=== PATIENT | male | born 1945 | race Caucasian/White ===

== ENCOUNTER 2017-02-09 09:08 | Outpatient (CLI) | payer MEDICARE ==
[~2017-02-09] VITALS: Ht 177.8 cm; Wt 90.9 kg
--- NOTE | ~2017-02-09 | HEMODYNAMI ---
PATIENT:ANA LILIA FLORES MEDICAL RECORD: [id number] : 41 LOCATION:D.CAT ADMISSION DATE: 02/09/17 Generatedon:02/09/201713:53 Patient name: ANA LILIA FLORES Patient #: [id number] SSN: DO B: 1945 Date of study: 02/09/2017 Page: Of Hemodynamic Procedure Report Patient Data Patient Demographics Procedure consent was obtained First Name: ANA LILIA Gender: Male Last Name: SANDRA : 1945 Middle Initial: RAY Age: 72 year(s) Patient #: [id number] Race: Unknown Additional ID: [id number] Contact details [address]: [address] [place] [address] DRIVE State: [place] City: [place] Zip code: [address] Admission Admission Data Admission Date: 02/09/2017 Admission Time: 9:08 Lab Results Lab Result Date: 02/09/2017 Lab Result Time: 0:00 Biochemistry Name Units Result Min Max BUN mg/dl 15 --(--*-)-- 7 18 Creatinine mg/dl 0.9 --(-*--)-- 0.6 1.3 CBC Name Units Result Min Max Hemoglobin g/dl 14.4 --(*---)-- 13.5 17.5 Procedure Procedure Types Cath Procedure Miscellaneous Procedures Moderate Sedation up to 30 minutes Peripheral Cath Diagnostic Procedure Cath Peripheral Ancvm-Eefcalf-Wvv-Off Procedure Description Procedure Date Procedure Date: 02/09/2017 Procedure Start Time: 13:26 Procedure End Time: 13:53 Procedure Staff Name Function Domenic Oakley MD Performing Physician Alan Murray RN Nurse Kyle Russell RT Monitor Katelin Antoine RT Scrub Procedure Data Cath Procedure Fluoroscopy Diagnostic fluoroscopy Total fluoroscopy Time: 6.6 time: 6.6 min min Diagnostic fluoroscopy Total fluoroscopy dose: 536 dose: 536 mGy mGy Contrast Material Contrast Material Type Amount (ml) Isovue 300 106 Entry Location Entry Primary Successful Side Size Upsize Upsize Entry Closure Succes sful Closure Location (Fr) 1 (Fr) 2 (Fr) Remarks Device Remarks Femoral Right 5 Fr 6 Fr 6 Fr Exoseal artery Long Short Estimated blood loss: 10 ml Diagnostic catheters Device Type Used For End Catheter Placement Cordis Tempo 5Fr UF Procedure catheter Diagnostic 5Fr IMT Procedure Catheter Diagnostic Infinity 5Fr Procedure MPA-2 catheter Procedure Complications No complications Procedure Medications Medication Administration Route Dosage Oxygen NC 2 l/min Lidocaine 2% added to field 20 Heparin Flush Bag added to field 2 bags (1000units/500ml NS) 0.9% NaCl I.V. 100 ml/hr Versed I.V. 1 mg Fentanyl I.V. 50 mcg Versed I.V. 1 mg Fentanyl I.V. 50 mcg Fentanyl I.V. 50 mcg Heparin Bolus I.V. 4000 units Hemodynamics Rest HGB: 14.4 (g/dl) Heart Rate: 58 (bpm) Snapshots Pre Cath Intra NCS Post Cath Vital Signs Time Heart Resp SPO2 etCO2 UL4httw NIBP (mmHg) Rhythm Pain Sedation Rate (ipm) (%) (mmHg) (mmHg) Status Level (bpm) 13:15:43 58 19 99 0 0 134/71(103) NSR 0 (11) 10(A) , No pain 13:19:59 61 18 97 0 0 152/67(89) NSR 0 (11) 10(A) , No pain 13:24:17 62 19 96 0 0 127/83(101) NSR 0 (11) 10(A) , No pain 13:28:29 63 19 96 0 0 137/72(114) NSR 0 (11) 10(A) , No pain 13:32:45 64 18 96 0 0 133/77(109) NSR 0 (11) 9(A) , No pain 13:37:01 65 17 95 0 0 125/71(96) NSR 0 (11) 9(A) , No pain 13:41:09 69 15 94 0 0 128/84(118) NSR 0 (11) 9(A) , No pain 13:45:21 72 16 94 0 0 116/77(112) NSR 0 (11) 10(A) , No pain 13:49:27 69 8 95 0 0 132/79(110) NSR 0 (11) 10(A) , No pain Medications Time Medication Route Dose Verified Delivered Reason Notes Effectiveness by by 13:15:54 Oxygen NC 2 Domenic Buffie used for l/min Cele Murray RN procedure 13:16:02 Lidocaine 2% added 20ml Domenic Domenic for local to vial Cele Oakley MD anesthetic field 13:16:10 Heparin Flush added 2 Domenic Domenic used for Bag to bags Cele Oakley MD procedure (1000units/500ml field NS) 13:16:19 0.9% NaCl I.V. 100 Domenic Buffie Per physician ml/hr Cele Murray RN 13:25:34 Versed I.V. 1 mg Domenic Buffie for sedation Cele Murray RN 13:25:40 Fentanyl I.V. 50 Domenic Buffie for sedation mcg Cele Murray RN 13:28:08 Versed I.V. 1 mg Domenic Buffie for sedation Cele Murray RN 13:28:12 Fentanyl I.V. 50 Domenic Buffie for sedation mcg Cele Murray RN 13:31:07 Fentanyl I.V. 50 Domenic Buffie for sedation mcg Cele Murray RN 13:37:51 Heparin Bolus I.V. 4000 Domenic Buffie for verifi ed units Cele Murray RN anticoagulation with dr oakley Procedure Log Time Note 12:51:15 Kyle Russell RT(R) sent for patient. Start room use. 12:51:15 Time tracking: Regular hours 12:51:20 Plan of Care:Hemodynamics will remain stable., Cardiac rhythm will remain stable., Comfort level will be maintained., Respiratory function will remain adequate., Patient/ family verbilizes understanding of procedure., Procedure tolerated without complication., Recovers from procedure without complications.. 13:04:16 Patient received from Pre/Post Procedure Room to CCL 1 Alert and oriented. Tansferred to table in Supine position. 13:04:18 Warm blankets applied, and sharifa hugger turned on for patient comfort. 13:04:18 Correct patient and procedure confirmed by team. 13:04:20 Signed procedure consent form obtained from patient. 13:04:22 ECG and BP/O2 sat monitors applied to patient. 13:14:36 Vital chart was started 13:14:40 Baseline sample Acquired. 13:14:45 Rhythm: sinus bradycardia 13:14:46 Full Disclosure recording started 13:15:00 H&P Date Dictated: 02/08/2017 Within 30 days and on chart., H&P Addendum completed by physician on day of procedure. (MUST COMPLETE FOR ALL OUTPATIENTS). 13:15:00 Pre-procedure instructions explained to patient. 13:15:01 Pre-op teaching completed and patient verbalized understanding. 13:15:03 Family in waiting room. 13:15:04 Patient NPO since Midnight. 13:15:07 Is the patient allergic to Iodine/contrast media? No. 13:15:08 Is patient on blood thinner?Yes 13:15:10 ACC The patient was administered the following blood thiners within the last 24 hours: ACCPlavix 13:15:11 Patient diabetic? No. 13:15:14 Previous problem with sedation/anesthesia? No ? 13:15:16 Snore? No 13:15:17 Sleep apnea? No 13:15:18 Deviated septum? No 13:15:18 Opens mouth fully? Yes 13:15:19 Sticks out tongue? Yes 13:15:21 Airway obstruction? No ? 13:15:23 Dentures? Yes IN 13:15:29 Pre procedure: right dorsailis pedis pulse 1+ Palpable, but thready & weak; easily obliterated 13:15:33 Pre procedure: left dorsailis pedis pulse Doppler 13:15:34 Patient pain scale 0/10 ?. 13:15:40 IV patent on arrival in left forearm with 0.9% NaCl at KVO. 13:15:43 Lab results completed and on chart. 13:15:54 Oxygen 2 l/min NC was administered by Aaln Murray RN; used for procedure; 13:16:01 Lab Result : Creatinine 0.9 mg/dl 13:16:01 Lab Result : BUN 15 mg/dl 13:16:01 Lab Result : Hemoglobin 14.4 g/dl 13:16:02 Lidocaine 2% 20ml vial added to field was administered by Domenic Oakley MD; for local anesthetic; 13:16:08 Bilateral groins area was prepped with chlora-prep and draped in sterile fashion 13:16:09 Alarms reviewed by R. N. 13:16:10 Heparin Flush Bag (1000units/500ml NS) 2 bags added to field was administered by Domenic Oakley MD; used for procedure; 13:16:10 Sharps counted by scrub and verified by R.N. 13:16:19 0.9% NaCl 100 ml/hr I.V. was administered by Alan Murray RN; Per physician; 13:19:55 Use device set Femoral Dx 13:19:56 Tegaderm 4 x 4 opened to sterile field. 13:19:58 Acist Hand Control opened to sterile field. 13:19:58 Acist Manifold opened to sterile field. 13:20:02 Acist Syringe opened to sterile field. 13:20:02 Bag Decanter opened to sterile field. 13:20:03 Medline Cath Pack opened to sterile field. 13:20:03 Terumo 5Fr Kingston Sheath opened to sterile field. 13:20:04 St Malcom 260cm J .035 wire opened to sterile field. 13::57 --------ALL STOP TIME OUT------ 13:23:58 Final Timeout: patient, procedure, and site verified with staff and physician. All members of the team are in agreement. 13:24:00 Bilateral groins site verified by team. 13:24:03 Physical assessment completed. ASA score P 2 - A patient with mild systemic disease as per Domenic Oakley MD. 13:24:07 Sedation plan: IV Moderate Sedation Versed, Fentanyl 13:25:34 Versed 1 mg I.V. was administered by Alan Murray RN; for sedation; 13:25:40 Fentanyl 50 mcg I.V. was administered by Alan Murray RN; for sedation; 13:26:42 Procedure started. 13:26:53 Local anesthetic to right femoral artery with Lidocaine 2% by Domenic Oakley MD.INITIAL ACCESS ONLY 13:27:44 A 5 Fr sheath was inserted into the Right Femoral artery 13:27:51 A Glow Digital Media 5Fr UF catheter was advanced over the wire and used for Procedure. 13:28:08 Versed 1 mg I.V. was administered by Alan Murray RN; for sedation; 13:28:12 Fentanyl 50 mcg I.V. was administered by Alan Murray RN; for sedation; 13:28:37 Abdominal Aortagram was performed. 13:28:47 Right leg runoff performed. 13:29:13 Left leg runoff performed. 13:30:02 Catheter removed. 13:30:06 A Diagnostic 5Fr IMT Catheter was advanced over the wire and used for Procedure. 13:30:10 Terumo ADVANTAGE 260CM glide wire opened to sterile field. 13:30:20 Glidewire advanced. 13:31:07 Fentanyl 50 mcg I.V. was administered by Alan Murray RN; for sedation; 13:32:09 Catheter advanced around the horn for better imaging of the left leg. 13:32:12 Left leg runoff performed. 13:33:30 Glidewire readvanced. 13:33:37 Catheter removed. 13:33:46 Terumo 6Fr Kingston Destination Sheath opened to sterile field. 13:33:56 [place] Sci Choice PT Extra Support J 300cm .014 gu opened to sterile field. 13:34:03 Merit BasixCompak Inflation Kit opened to sterile field. 13:34:16 Sheath upsized to a 6 Fr Long. 13:35:45 A Diagnostic Infinity 5Fr MPA-2 catheter was advanced over the wire and used for Procedure. 13:36:20 MPA catheter used advance sheath around the horn. 13:36:32 Catheter removed. 13:37:37 Terumo 5FR STRAIGHT 100CM glide catheter opened to sterile field. 13:37:51 Heparin Bolus 4000 units I.V. was administered by Alan Murray RN; for anticoagulation; verified with dr oakley 13:37:53 Glidecatheter advanced. 13:38:41 Glidewire removed. Choice PT XS advanced. 13:41:49 Choice PT XS removed. Glidewire readvanced. 13:41:59 Terumo TORQUE DEVICE PLASTIC .038 opened to sterile field. 13:42:47 Terumo 6Fr Kingston Sheath opened to sterile field. 13:43:45 Wire removed. Glidecatheter removed. 13:44:09 Unable to cross lesion is Left Mid SFA. 13:44:40 Cordis 6Fr Exoseal opened to sterile field. 13:44:55 Sheath upsized to a 6 Fr Short. 13:44:55 Sheath removed intact; hemostasis achieved with Exoseal to the Right Femoral artery. 13:44:58 Procedure ended.(Physican Out) 13:45:17 Fluoroscopy time 06.60 minutes. 13:46:04 Fluoroscopy dose: 536 mGy 13:46:04 Flurop Dose total: 536 13:46:08 Contrast amount:Isovue 300 106ml. 13:46:10 Sharps counted by scrub and verified by R.N. 13:48:58 Insertion/operative site no bleeding no hematoma. 13:49:02 Post-op/insertion site Right Femoral artery dressed using a 4 x 4 and Tegaderm. 13:49:05 Post Procedure Pulses reassessed and unchanged 13:49:07 Post-procedure physical assessment completed. ASA score P 2 - A patient with mild systemic disease as per Domenic Oakley MD. 13:49:10 Post procedure rhythm: unchanged. 13:49:13 Estimated blood loss: 10 ml 13:49:15 Post procedure instruction explained to patient.Patient verbalizes understanding. 13:49:16 Patient needs reinforcement of post procedure teaching. 13:49:22 Procedure type changed to Cath procedure, Miscellaneous Procedures, Moderate Sedation up to 30 minutes, Peripheral Cath Diagnostic Procedure, Cath Peripheral, Rtbxj-Qglhnzt-Pre-Off 13:49:24 Procedure and supply charges have been captured, reviewed, submitted and are correct. 13:49:26 Procedure Complication : No complications 13:52:54 Vital chart was stopped 13:52:55 See physician's report for complete and final results. 13:53:08 Report given to Pre/Post Procedure Room. 13:53:11 Patient transfered to Pre/Post Procedure Room with Bed. 13:53:13 Procedure ended. 13:53:13 Full Disclosure recording stopped 13:53:16 End room use (Document Last) Device Usage Item Name Manufacture Quantity Catalog Number [facility] Part Current [facility] Lot# / Charge Number Stock Stock Serial# Code Tegaderm 4 3M 1 [id number] 665598 [id number] 5 x 4 Acist Hand Acist 1 36265 881783 460689 218348 5 Control Medical Systems Inc Acist Acist 1 07449 033368 376713 381653 5 Manifold Medical Systems Inc Acist Acist 1 73933 515786 599968 551606 20 Syringe Medical Systems Inc Bag Microtek 1 2001S 129325 69976 313549 5 Decanter Medical Inc. Medline Cardinal 1 [id number] 083692 77847 132581 5 Cath Pack Health Terumo 5Fr Terumo 1 IBT931 071750 916755 707556 [address] St Malcom 1 344032 272329 041662 158187 30 260cm J .035 wire Cordis Cardinal 1 [id number] 639233 756548 906891 10 Tempo 5Fr Health UF catheter Diagnostic [place] 1 [id number] 860347 404594 61531 5 5Fr IMT Scientific Catheter Terumo Terumo 1 SM7225 327766 623599 5 ADVANTAGE 260CM glide wire Terumo 6Fr Terumo 1 RSR01 461366 23938 080795 5 Kingston Destination Sheath Northfield Sci Northfield 1 [id number] 488528 634453 465107 5 Choice PT Scientific Extra Support J 300cm .014 gu Merit Merit 1 JW0004 745388 439385 183279 15 BasixComazk Medical Inflation Kit Diagnostic Cardinal 1 [id number] 247728 657587 940245 5 Infinity Health 5Fr MPA-2 catheter Terumo 5FR Terumo 1 CG506 879221 60384 484639 4 STRAIGHT 100CM glide catheter Terumo [place] 1 TD01 927442 174331 248245 5 TORQUE Scientific DEVICE PLASTIC .038 Terumo 6Fr Terumo 1 HUT105 834010 970732 358447 40 Kingston Sheath Cordis 6Fr Cardinal 1 EX600 266590 920133 846760 10 [facility] [email or web address] Signature Audit [place] Stage Time Signature Unsigned Intra-Procedure 02/09/2017 Kyle Russell 1:53:35 PM RT(R) Signatures Monitor : Kyle Russell RT Signature : Date : Time : [facility] [address] [place] [address]
[2017-02-09] MEDS ORDERED: LYRICA150 MG PO (10:39)
[2017-02-09] MEDS ORDERED: TEMAZEPAM30 MG PO (10:39)
[2017-02-09] MEDS ORDERED: LIPITOR40 MG PO (10:40)
[2017-02-09] MEDS ORDERED: MOBIC7.5 MG PO (10:40)
[2017-02-09] MEDS ORDERED: FLINTSTONE1 TAB.CHEW PO (10:41)
[2017-02-09] MEDS ORDERED: CEREFOLIN TAB1 TAB PO (10:41)
[2017-02-09] MEDS ORDERED: ESTER-C 500 MG1 TAB PO (10:42)
[2017-02-09] MEDS ORDERED: OMEGA 3 FISH OI1 CAP PO (10:42)
[2017-02-09] MEDS ORDERED: BAYER CHEWABLE81 MG PO (10:42)
[2017-02-09 10:51] VITALS: BP 151/72; Ht 177.8 cm; Wt 90.9 kg
[2017-02-09 11:00] LABS: BASOPHILS 0.5 % (0-2); EOSINOPHILS 4.5 % (0-7); HEMATOCRIT 43.1 % (42.0-54.0); HEMOGLOBIN 14.4 g/dL (13.5-17.5); IMMATURE GRANULOCYTES 0.3 % (0-5); LYMPHOCYTES 36.7 % (15-50); MCH 31.7 pg (26.0-34.0); MCHC 33.4 g/dL (31.0-37.0); MCV 94.9 fL (80.0-100.0); MEAN PLATELET VOLUME 10.9 fL (7.4-10.4); MONOCYTES 7.9 % (2-11); NEUTROPHILS 50.1 % (40-80); PLATELET COUNT 229 10x3/uL (130-400); RBC 4.54 10x6/uL (4.20-6.10); RDW 12.9 % (11.5-14.5); WBC 6.3 10x3/uL (4.8-10.8)
[2017-02-09 11:13] LABS: CALC OSMOLALITY 283 mosm/kg (275-300); CALCIUM 9.1 mg/dL (8.5-10.1); CARBON DIOXIDE 27.3 mmol/L (21.0-32.0); CHLORIDE - SERUM 107 mmol/L (98-107); CREATININE - SERUM 0.9 mg/dL (0.6-1.3); GLUCOSE 92 mg/dL (74-106); POTASSIUM - SERUM 4.4 mmol/L (3.5-5.1); SODIUM 142 mmol/L (136-145); UREA NITROGEN 15 mg/dL (7-18); eGFR NON AFRICAN AMERICAN 88 mL/min (90-120)
--- NOTE | 2017-02-09 14:15 | NUR ---
RIGHT GROIN CDI, NO HEMATOMA OR BLEEDING AT SITE, SOFT TO TOUCH, AT SIDE
--- NOTE | 2017-02-09 14:45 | NUR ---
RESTING WITH AT SIDE, RIGHT GROIN CDI, NO HEMATOMA OR BLEEDING AT SITE
--- NOTE | 2017-02-09 17:50 | NUR ---
WRITTEN AND VERBAL INSTRUCTIONS GIVEN TO PT AND , DENIES FURTHUR NEEDS, D'C HOME WITH
--- NOTE | 2017-02-14 13:54 | OP ---
PATIENT NAME: ANA LILIA FLORES MEDICAL RECORD: [id number] :41 LOCATION:D.CAT ADMISSION DATE: SURGEON: MIS ROBERSON MD OPERATION DATE: 02/09/17 DATE OF OPERATION: 02/09/2017 PROCEDURES: 1. Aortofemoral runoff. 2. Abdominal aortography. INDICATION: Claudication and peripheral vascular disease. PROCEDURE IN DETAIL: After informed consent was obtained and after detailed explanation of risks, benefits as well as alternative therapies, the patient elected to proceed with angiogram and aortofemoral runoff. The right femoral area was prepped and draped in normal sterile fashion. The right femoral artery was cannulated via modified Seldinger technique with placement of 6-Paraguayan sheath. All catheters exchanged through this sheath. FINDINGS: The abdominal aortography was performed. The catheter was pulled down for aortofemoral runoff. Abdominal aortography reveals no significant abdominal aortic disease. No dissection or aneurysm formation. RIGHT LEG: A. Iliac: The common internal and external iliacs have moderate irregularities, but no flow-limiting stenosis. B. Femoral system: The common and deep femoral are widely patent. Superficial femoral has an area heavily calcified stenosis in the distal vessel at least 80%. C. Popliteal and infrapopliteal vessels: The popliteal is widely patent. There is preserved 3-vessel runoff to the foot. LEFT LEG: A. Iliac: The common internal and external iliacs are heavily calcified, tortuous, but no flow-limiting stenosis. B. Femoral system: The common and deep femoral are widely patent. The superficial femoral has a total occlusion in the mid portion vessel that is heavily calcified. C. Distal SFA is widely patent. Popliteal and infrapopliteal vessels are as well widely patent with preserved 3-vessel runoff to the foot. Attempted PARK AIDE stent of the left SFA. We could not cross the area of total occlusion with any glide cath glidewire or coronary wire. OVERALL IMPRESSION: Total occlusion of the left SFA, evaluate for femoropopliteal bypass surgery, right SFA is amenable to transcatheter revascularization in the future. TRANSINT:[id number] Voice Confirmation ID: [id number] DOCUMENT ID: [id number] OPERATIVE REPORT [id number] ANA LILIA FLORES MIS ROBERSON MD at 3864 CC: [id number] DICTATION DATE: 02/09/17 1351 EXECUTIVE RELATIONS SPECIALIST: 02/09/172045 DEP CLI 02/09/17 [facility] [address] [place] [address]
== END 2017-02-09 18:00 | disposition home or self-care (01) ==
LOC: D.CATH 09:08
PROVIDERS: Internal Medicine Interventional Cardiology
DX: I70.219 Atherosclerosis of native arteries of extremities with intermittent claudication, unspecified extremity (principal); E78.5 Hyperlipidemia, unspecified; I25.10 Atherosclerotic heart disease of native coronary artery without angina pectoris; Z01.812 Encounter for preprocedural laboratory examination

== ENCOUNTER → 2017-02-23 15:05 | Outpatient (CLI) | payer MEDICARE ==
[2017-02-09 10:51] VITALS: BMI 28.7
[~2017-02-23 15:05] MED LIST: BAYER CHEWABLE81 MG PO; CEREFOLIN TAB1 TAB PO; ESTER-C 500 MG1 TAB PO; FLINTSTONE1 TAB.CHEW PO; LIPITOR40 MG PO; LYRICA150 MG PO; MOBIC7.5 MG PO; OMEGA 3 FISH OI1 CAP PO; TEMAZEPAM30 MG PO
== END | disposition home or self-care (01) ==
LOC: D.US 15:05
DX: R09.89 Other specified symptoms and signs involving the circulatory and respiratory systems (principal)

== ENCOUNTER → 2017-02-26 10:12 | Outpatient (CLI) | payer MEDICARE ==
[2017-02-09 10:51] VITALS: BMI 28.7
[~2017-02-26 10:12] MED LIST changes: +ASCORBIC ACID500 MG PO; +GARLIC PO; -LYRICA150 MG PO; +LYRICA300 MG PO; +MULTI-DAY VITAM1 TAB PO; +PLAVIX75 MG PO; +VITAMIN B-122500 MCG PO
== END | disposition home or self-care (01) ==
LOC: D.CT 10:12
DX: I65.23 Occlusion and stenosis of bilateral carotid arteries (principal)

== ENCOUNTER 2017-02-28 05:09 | Inpatient (IN) | payer MEDICARE ==
[2017-02-27 16:23] LABS: HEMATOCRIT 42.6 % (42.0-54.0); HEMOGLOBIN 14.3 g/dL (13.5-17.5); MCH 31.7 pg (26.0-34.0); MCHC 33.6 g/dL (31.0-37.0); MCV 94.5 fL (80.0-100.0); MEAN PLATELET VOLUME 10.8 fL (7.4-10.4); RBC 4.51 10x6/uL (4.20-6.10); RDW 12.9 % (11.5-14.5)
[2017-02-27 16:31] LABS: APTT 25.4 SECONDS (22.8-39.4); INR 0.9 (0.85-1.17)
[2017-02-27 16:35] LABS: ALBUMIN 3.5 g/dL (3.4-5.0); ALKALINE PHOSPHATASE 182 U/L (46-116); ALT (SGPT) 29 U/L (10-68); APPEARANCE CLEAR (CLEAR); BILIRUBIN NEGATIVE (NEGATIVE); BILIRUBIN - TOTAL 0.59 mg/dL (0.2-1.3); CALC OSMOLALITY 277 mosm/kg (275-300); CALCIUM 8.7 mg/dL (8.5-10.1); CARBON DIOXIDE 31.3 mmol/L (21.0-32.0); CHLORIDE - SERUM 104 mmol/L (98-107); COLOR YELLOW (YELLOW); GLUCOSE 89 mg/dL (74-106); GLUCOSE NEGATIVE (NEGATIVE); KETONE NEGATIVE (NEGATIVE); LEUKOCYTE ESTERASE NEGATIVE (NEGATIVE); NITRITE NEGATIVE (NEGATIVE); POTASSIUM - SERUM 4.5 mmol/L (3.5-5.1); PROTEIN NEGATIVE (NEGATIVE); PROTEIN - SERUM 7.1 g/dL (6.4-8.2); SODIUM 140 mmol/L (136-145); SPECIFIC GRAVITY 1.025 (1.005-1.020); UREA NITROGEN 12 mg/dL (7-18); UROBILINOGEN NORMAL (NORMAL); eGFR NON AFRICAN AMERICAN 78 mL/min (90-120)
[2017-02-28] VITALS (37 sets, daily range): BP systolic 98–140; BP diastolic 47–76; BMI 30.9; BMI 31.6
[~2017-02-28] VITALS: Ht 177.8 cm; Wt 101.2 kg
--- NOTE | ~2017-02-28 | HP ---
PATIENT: ANA LILIA FLORES MEDICAL RECORD: [id number] ACCOUNT: [id number] LOCATION:[facility] : 43 ADMISSION DATE: 02/28/17 HISTORY AND PHYSICAL EXAMINATION ANA LILIA Nicholas (72yo, M) ID# [id number]. Date/Time02/27/2017 01:[id number] Dept.NPP_[facility] ClinicProviderEDKURT MOCK MDInsuranceMed Primary: [place] ([place]) Insurance # : [id number] Referring Provider Name : JA MIGUEL Employer Name : UNKNOWN Med Secondary: AARP (MEDICARE SUPPLEMENT) Insurance # : [id number] Employer Name : UNKNOWN Prescription: ORX - Member is eligible. Chief Complaint Carotid stenosis Patient's Care Team Referring Provider (): MYRIAM, JA: [address], [address], [place] [address], , Laser Cutter: MIS ROBERSON MD: [address] [place] [phone], , Patient's Pharmacies [facility] ([facility]): [address] [place] [phone], , Vitals BP:100/60 sitting L arm 02/27/2017 01:04 pmHR:88R/R 02/27/2017 01:04 pmHt:5 ft 10 in 02/27/2017 12:59 pmWt:210 lbs 02/27/2017 01:00 pmBMI:30.1 02/27/2017 01:00 pmAllergies Reviewed Allergies NKDAMedications Reviewed Medications aspirin 81mg daily02/12/17 enteredCindy Brownatorvastatin 40 mg zfgfye45/01/17 filledPRESCRIPTION SOLUTIONSFish Oil02/12/17 enteredCindy Ivoiulurwyh63/24/17 enteredCindy Brownlidocaine 5 % topical agwkeknu35/31/16 filledPRESCRIPTION SOLUTIONSLyrica 150 mg capsule Take 1 capsule(s) twice a day by oral route.02/12/17 Ayad Gibbsmeloxicam 15 mg tablet Take 1 tablet(s) every day by oral route.02/12/17 enteredLuisa Ghgigdbmpqvaifehi88/24/17 enteredLuisa Gibbstemazepam 30 mg pkaxxrb77/01/17 filledPRESCRIPTION SOLUTIONSVitamin C002/12/17 enteredLuisa GibbsProblems Reviewed Problems Carotid artery stenosis - Onset: 02/27/2017 Intermittent claudication due to atherosclerosis of [place] artery of limb - Onset: 02/23/2017 Atherosclerosis of arteries of the extremities - Onset: 02/12/2017 Family History Discussed Family History Father- Myocardial infarctionSocial History Discussed Social History Cardiology Family history of heart disease?: Y Smoking Status: Former smoker HISTORY AND PHYSICAL [id number] ANA LILIA FLORES High Cholesterol: Y High blood pressure: Y Diabetes: N Surgical History Reviewed Surgical History Other - COMPUTER FORENSIC EXAMINER/stent Right leg Other - bladder cancer Past Medical History Discussed Past Medical History Heart stents: Y High Blood Pressure: Y Hyperlipidemia: Y Pain in legs when walking: Y Peripheral Vascular Disease (PVD): Y Documents for Discussion N/A Screening None recorded. HPI Cerebral Vascular Disease Reported by patient. Quality: weakness ("feet"); numbess; blurred vision Onset/Timing: intermittent severe left internal carotid artery stenosis Claudication. 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 He reports no dry eyes, no irritation, and no vision change. He reports no difficulty hearing and no ear pain. He reports no frequent nosebleeds and no nose/sinus problems. He reports no sore throat, no bleeding gums, no snoring, no dry mouth, no m outh ulcers, no oral abnormalities, and no teeth problems. He reports no jugular vein distension and no swollen glands. He reports no chest pain, no arm pain on exertion, no shortness of breath when walking, no shortness of breath when lying down, no palp i tations, and no known heart murmur. He reports no cough, no wheezing, no shortness of breath, and no coughing up blood. He reports no abdominal pain, no vomiting, normal appetite, no diarrhea, not vomiting blood, no nausea, and no constipation. He reports no incontinence, no difficulty urinating, no hematuria, and no increased frequency. He reports no muscle aches, no muscle weakness, no arthralgias/joint pain, no back pain, and no swelling in the extremities. He reports no abnormal mole, no jaundice, and n o rashes. He reports no loss of consciousness, no weakness, no numbness, no seizures, no dizziness, and no headaches. He reports no depression, no sleep disturbances, feeling safe in relationship, and no alcohol abuse. He reports no fatigue. He reports no swollen glands and no bruising. He reports no runny nose, no sinus pressure, no itching, no hives, and no frequent sneezing. ROS as noted in the HPI Physical Exam Patient is a 72-year-old male. Constitutional: General Appearance well nourished and developed and healthy-appearing. Level of Distress NAD. Ambulation limited ambulation. HISTORY AND PHYSICAL [id number] HARBOUR,ANA LILIA RAY Cardiovascular: Apical Impulse not displaced or no thrill. Heart Auscultation normal s1 and s2; no murmurs, rubs, or gallops; and RRR. Arterial Pulses no abdominal aorta bruits, femoral bruits, or popliteal bruits; popliteal not palpable (bilaterally) and dorsalis pedis not palpable(bilaterally); and 2+ bilateral, carotid 2+ bilateral, and femoral 2+ bilateral. Edema no edema or varicosities. Lungs: Repiratory Effort no dyspn ea. Percussion no hyperresonance or dullness or flatness. Auscultation no wheezing, rhonchi, or rales / crackles and breathing sounds normal, good air movement, and CTA except as noted. Abdomen: Bowl Sounds normal. Inspection and Palpation no tenderness, guarding, masses, or rebound tenderness and soft and non-distended. Liver non-tender and no hepatomegaly. Spleen non-tender and no splenomegaly. Hernia none palpable. Musculoskeletal System: Gait And Stance irregular gait and stance. Digits and Nails normal nails and no cyanosis. Neurologic: Cranial Nerves grossly intact. Reflexes DTRs 2+ bilaterally throughout. Sensation grossly intact. Lymph Nodes: Lymph Nodes no cervical LAD, supraclavicular LAD, axillary LAD, or inguinal LAD. Eyes: Lids and Conjunctivae no discharge or pallor and non-injected. Pupils PERRLA. Cornea grossly intact. EOM EOMI. Lens clear. Sclerae non-icteric. Neck: Neck no masses, enlarged lymph nodes, or carotid bruits and supple and trachea midline. Thyroid no enlargement or nodules and non-tender; severe stenosis left internal carotid artery however he has no bruits. Skin: Inspection and Palpation no rash, lesions, ulcers, jaundice, or abnormal nevi. Assessment / Plan severe left internal carotid artery stenosis Severe claudication lower extremities 1. Carotid artery stenosis - Bilateral I65.29: Occlusion and stenosis of unspecified carotid artery CAROTID STENOSIS: CARE INSTRUCTIONS 2. Intermittent claudication due to atherosclerosis of [place] artery of limb I70.213: Atherosclerosis of [place] arteries of extremities with intermittent claudication, bilateral legs Discussion Notes severe left internal carotid artery stenosis. Before his femoral-popliteal bypass he would benefit from left carotid endarterectomy. I have discussed his disease process with him in detail as well as the alternative methods of treatment. We discussed left carotid endarterectomy including the expected benefits and risks which include bleeding, infection , stroke, and , and the imponderables. He and his both understand all of the above and he wishes to proceed with an procedure left carotid endarterectomy. HISTORY AND PHYSICAL [id number] ANA LILIA FLORES EDWARD MD CC: [id number] DICTATION DATE: 02/27/17 1300 LOG HANDLING EQUIPMENT OPERATOR: NANCY 02/27/17 1420 PRE IN [facility] [address] [place] [address]
--- NOTE | ~2017-02-28 | HP ---
PATIENT: ANA LILIA FLORES MEDICAL RECORD: [id number] ACCOUNT: [id number] LOCATION:[facility] : 43 ADMISSION DATE: 02/28/17 HISTORY AND PHYSICAL EXAMINATION ANA LILIA Nicholas (72yo, M) ID# [id number]. Date/Time02/23/2017 01:[id number] Dept.NP_[facility] ClinicProviderEDKURT MOCK MDInsuranceMed Primary: [place] ([place]) Insurance # : [id number] Referring Provider Name : JA MIGUEL Employer Name : UNKNOWN Med Secondary: AARP (MEDICARE SUPPLEMENT) Insurance # : [id number] Employer Name : UNKNOWN Prescription: ORX - Member is eligible. Chief Complaint atherosclerosis of arteries of extremities AFRO done by Dr. Oakley Patient's Care Team Referring Provider (): JA MIGUEL: [address] , [address] [phone], , Airport Maintenance Chief: MIS OAKLEY MD: [address] [place] [phone], , Patient's Pharmacies [facility] ([facility]): [address] [place] [address] [place] [address], , Vitals BP:100/60 sitting R arm 02/23/2017 01:49 pm 100/50 sitting L arm 02/23/2017 01:49 pmHR:60R/R 02/23/2017 01:49 pmHt:5 ft 10 in 02/23/2017 01:47 pmWt:210 lbs 02/23/2017 01:47 pmBMI:30.1 02/23/2017 01:47 pmAllergies Reviewed Allergies NKDAMedications Reviewed Medications aspirin 81mg daily02/12/17 enteredCindy Brownatorvastatin 40 mg htccaq14/01/17 filledPRESCRIPTION SOLUTIONSFish Oil02/12/17 enteredCindy Loarkzaclxk77/24/17 enteredCindy Brownlidocaine 5 % topical kzqcebdj97/31/16 filledPRESCRIPTION SOLUTIONSLyrica 150 mg capsule Take 1 capsule(s) twice a day by oral route.02/12/17 Ayad Gibbsmeloxicam 15 mg tablet Take 1 tablet(s) every day by oral route.02/12/17 enteredCinhayden Mzbmjquqiwvocwaro71/24/17 enteredLuisa Gibbstemazepam 30 mg jzhrruf84/01/17 filledPRESCRIPTION SOLUTIONSVitamin C002/12/17 enteredLuisa GibbsProblems Reviewed Problems Intermittent claudication due to atherosclerosis of [place] artery of limb - Onset: 02/23/2017 Atherosclerosis of arteries of the extremities - Onset: 02/12/2017 Family History Discussed Family History Father- Myocardial infarctionSocial History Discussed Social History Cardiology HISTORY AND PHYSICAL [id number] ANA LILIA FLORES Family history of heart disease?: Y Smoking Status: Former smoker High Cholesterol: Y High blood pressure: Y Diabetes: N Surgical History Reviewed Surgical History Other - RN CLINICAL TRIALS/stent Right leg Other - bladder cancer Past Medical History Discussed Past Medical History Heart stents: Y High Blood Pressure: Y Hyperlipidemia: Y Pain in legs when walking: Y Peripheral Vascular Disease (PVD): Y Documents for Discussion N/A Screening None recorded. HPI Peripheral Vascular Disease Reported by patient. Location: calf; foot Quality: cramping; burning; aching; weakness; "Left > Right. my legs hurt at rest too." Severity: interferes with normal activity Aggravating Factors: walking claudication lower extremities bilaterally left greater than the right ROS Patient reports exercise intolerance but reports no fever, no night sweats, no significant weight gain, and no significant weight loss; claudication bilaterally left greater than the right Severe peripheral neuropathy. He reports no dry eyes, no irritation, and no vision change. He reports no difficulty hearing and no ear pain. He reports no frequent nosebleeds and no nose/sinus problems. He reports no sore throat, no bleeding gums, no sn oring, no dry mouth, no mouth ulcers, no oral abnormalities, and no teeth problems. He reports no jugular vein distension and no swollen glands. He reports no chest pain, no arm pain on exertion, no shortness of breath when walking, no shortness of breath when lying down, no palpitations, and no known heart murmur. He reports no cough, no wheezing, no shortness of breath, and no coughing up blood. He reports no abdominal pain, no vomiting, normal appetite, no diarrhea, not vomiting blood, no nausea, and no constipation. He reports no incontinence, no difficulty urinating, no hematuria, and no increased frequency. He reports no muscle aches, no muscle weakness, no arthralgias/joint pain, no back pain, and no swelling in the extremities. He reports no abnorma l mole, no jaundice, and no rashes. He reports no loss of consciousness, no weakness, no numbness, no seizures, no dizziness, and no headaches. He reports no depression, no sleep disturbances, feeling safe in relationship, and no alcohol abuse. He reports no fatigue. He reports no swollen glands and no bruising. He reports no runny nose, no sinus pressure, no itching, no hives, and no frequent sneezing. ROS as noted in the HPI Physical Exam Patient is a 72-year-old male. HISTORY AND PHYSICAL [id number] ANA LILIA FLORES Constitutional: General Appearance well nourished and developed and healthy-appearing. Level of Distress NAD. Ambulation limited ambulation. Cardiovascular: Apical Impulse not displaced or no thrill. Heart Auscultation normal s1 and s2; no murmurs, rubs, or gallops; and RRR. Arterial Pulse s no abdominal aorta bruits, femoral bruits, or popliteal bruits; popliteal not palpable (bilaterally) and dorsalis pedis not palpable(bilaterally); and 2+ bilateral, carotid 2+ bilateral, and femoral 2+ bilateral. Edema no edema or varicosities. Lungs: R epiratory Effort no dyspnea. Percussion no hyperresonance or dullness or flatness. Auscultation no wheezing, rhonchi, or rales / crackles and breathing sounds normal, good air movement, and CTA except as noted. Abdomen: Bowl Sounds normal. Inspection and Palpation no tenderness, guarding, masses, or rebound tenderness and soft and non-distended. Liver non-tender and no hepatomegaly. Spleen non-tender and no splenomegaly. Hernia none palpable. Musculoskeletal System: Gait And Stance irregular gait and stance. Digits and Nails normal nails and no cyanosis. Neurologic: Cranial Nerves grossly intact. Reflexes DTRs 2+ bilaterally throughout. Sensation grossly intact. Lymph Nodes: Lymph Nodes no cervical LAD, supraclavicular LAD, axillary LAD, or inguinal LAD. Eyes: Lids and Conjunctivae no discharge or pallor and non-injected. Pupils PERRLA. Cornea grossly intact. EOM EOMI. Lens clear. Sclerae non-icteric. Neck: Neck no masses, enlarged lymph nodes, or carotid bruits and supple and trachea midline. Thyroid no enlargement or nodules and non-tender. Skin: Inspection and Palpation no rash, lesions, ulcers, jaundice, or abnormal nevi. Assessment / Plan claudication lower extremities bilaterally left greater than the right 1. Intermittent claudication due to atherosclerosis of [place] artery of limb I70.213: Atherosclerosis of [place] arteries of extremities with intermittent claudication, bilateral legs Discussion Notes failed percutaneous revascularization of left lower extremity. He had severe disease throu ghout the left superficial femoral artery with total occlusion in its midportion. I have discussed his disease process with him in detail as well as the alternative methods of treatment. We discussed left femoral-popliteal bypass including the expected be nefits and risks which include bleeding, infection, stroke, , and the imponderables. He and his understand all with the above and he wishes to proceed with planned procedure as soon as possible. he will need carotid Doppler studies preoperatively. Scheduled for in situ left femoropopliteal artery bypass. HISTORY AND PHYSICAL [id number] ANA LILIA FLORES EDWARD MD CC: [id number] DICTATION DATE: 02/23/17 1300 MANAGER CARGO: DM 02/26/17 0955 PRE IN [facility] [address] [place] [address]
--- NOTE | ~2017-02-28 | OP ---
PATIENT NAME: ANA LILIA FLORES MEDICAL RECORD: [id number] :41 LOCATION:[facility].CV05 ADMISSION DATE:02/28/17 SURGEON: COREY MOCK MD DATE OF OPERATION: 02/28/2017 SURGEON: Corey Mock MD. ANESTHESIA: General endotracheal, Dr. Alexander. OPERATION PERFORMED: Left carotid endarterectomy with patch angioplasty. PREOPERATIVE DIAGNOSIS: Severe left internal carotid artery stenosis. POSTOPERATIVE DIAGNOSIS: Severe left internal carotid artery stenosis. INDICATION FOR OPERATION: Severe left internal carotid artery stenosis. FINDINGS AT OPERATION: Severe left internal carotid artery stenosis. There were no EEG changes with clamping or unclamping of the carotid artery. ESTIMATED BLOOD LOSS: Less than 150 mL. DESCRIPTION OF PROCEDURE: After informed consent, adequate preoperative medication evaluation, the patient was brought to the operating room, placed on the table in the supine position. After induction of general endotracheal anesthesia and application of appropriate monitoring devices, the left neck and chest were prepped and draped in a sterile field, utilizing Betadine scrub, alcohol and Betadine solution. A Betadine-impregnated drape was also used. An oblique incision was made in the skin crease. Dissection was carried down to the fascia. Hemostasis maintained with electrocautery. Facial vein was identified and divided. Utilizing sharp dissection, the common carotid, internal and external carotid arteries were dissected free from surrounding structures, protecting the neurological structures. The patient was given a calculated dose of heparin, after 3 minutes, clamps were applied and after 2 minutes, no EEG change. The arteriotomy was made and extended with Crowley scissors. Artery underwent endarterectomy sharply. Artery underwent extensive debridement and irrigation. Utilizing a CorMatrix vascular patch, a running 7-0 Prolene suture, the arteriotomy was closed with patch angioplasty technique. All maneuvers to remove trapped air were performed. The clamps were removed sequentially. There were no EEG changes. The patient was given a calculated dose of protamine to reverse the heparin. Hemostasis was achieved and a #7 Fidencio-Garcia drain was left in the depths of wound and brought through the base of the neck. Neck was again irrigated. Instrument counts and sponge counts were correct times 2. Neck was closed in layers utilizing 3-0 Vicryl on the platysma, 5-0 subcuticular Monocryl on the skin. Sterile dressings were applied. The patient tolerated the procedure well and was transferred to the CV ICU in satisfactory condition. TRANSINT:[id number] Voice Confirmation ID: [id number] DOCUMENT ID: [id number] OPERATIVE REPORT [id number] ANA LILIA FLORES EDWARD MD CC: [id number] DICTATION DATE: 02/28/17 103 PET CARE ATTENDANT: 02/28/17 1826 ADM IN [facility] [id number] [place] [address]
--- NOTE | 2017-02-28 10:41 | NUR ---
PT TO ROOM VIA BED, MONITORS CONNECTED.
--- NOTE | 2017-02-28 10:50 | NUR ---
CXR IN PROGRESS.
--- NOTE | 2017-02-28 11:02 | NUR ---
FAMILY AT BEDSIDE, UPDATED BY DR MOCK.
--- NOTE | 2017-02-28 12:05 | NUR ---
NEURO CHECK COMPLETED, WNL. VSS. PT ALERT, WATER PROVIDED PER REQUEST. AT BEDSIDE, CALL LIGHT WITHIN REACH.
--- NOTE | 2017-02-28 13:12 | NUR ---
NEURO CHECK COMPLETED, WNL. VSS. PT VOICES NO ADDITIONAL NEEDS AT THIS TIME.
--- NOTE | 2017-02-28 15:15 | NUR ---
FAMILY AT BEDSIDE, UPDATE PROVIDED. VSS. RT AT BEDSIDE, PT PULLING 2750 ON I/S WITHOUT DIFFICULTY.
--- NOTE | 2017-02-28 15:30 | NUR ---
REASSESSMENT VIA FLOWSHEET, SEE FOR DETAILS. LEFT NECK INCISION CDI, NO SWELLING NOTED, ICEPACK IN PLACE.
--- NOTE | 2017-02-28 17:30 | NUR ---
PT PROVIDED WITH DINNER TRAY, ASSISTED TO POSITION OF COMFORT. RIGHT NECK INCISION REMAINS WNL, ICEPACK IN PLACE. VSS. PT VOICES NO ADDITIONAL NEEDS AT THIS TIME. CALL LIGHT WITHIN REACH.
--- NOTE | 2017-02-28 19:00 | NUR ---
REPORT RECIEVED. ASSESSMETN COMPLETE PER FLOW SHEET. VSS. PT AWAKE ALERT ORIENTED X3. O2 VIA NC 2L O2 SAT98% RR 16 NON LABORED BILAT LUNGS CLEAR. EYES PERRLA 3MM BRISK. HEART S1S2 HR 92 NSR. BP VIA R RADIAL ART LINE 120/65 WITH GOOD WAVEFORM EXTREMTY PINK WITH GOOD SENSATION WRIST PROTECTOR ON. BILAT PEDAL PULSES PALP. L NECK INCISION DRSG CDI NO SWELLING BRUISING OR DRAINAGE NOTED AT SITE JORDAN PATENT COMPRESSED MINIMAL BLOODY DRAINAGE NOTED. NO S/S OF TRACHEAL DEVITATION NOTED TOUNGE MIDLINE. BS ACTIVE X4. TEDS SCD'S ON HEELS BRIDGED. DENIES PAIN OR NEEDS. VSS. WILL CONTINUE TO MONITOR
--- NOTE | 2017-02-28 21:04 | NUR ---
2100 MEDS ADM WIHTOUT DIFFICULTY. VSS. NO NEW CHANGES.
--- NOTE | 2017-02-28 23:00 | NUR ---
REASSESSMENT COMPLETE PER FLOW SHEET. VSS. NO NEW CHANGES WILL CONTINUE TO MONITOR
[2017-03-01] VITALS (14 sets, daily range): BP systolic 100–123; BP diastolic 44–65; Ht 177.8 cm; Wt 101.2 kg
--- NOTE | 2017-03-01 01:20 | NUR ---
A-LINE ALARMING WITH BAD WAVEFORM, ZEROED WRIST PROTECTOR ON XTREMTY PINK WITH GOOD SENSATION. GOOD WAVEFORM BP 103/52 DENIES PAIN OR NEEDS. VSS. WILL CONTINUE TO MONTIOR
--- NOTE | 2017-03-01 03:00 | NUR ---
REASSESSMENT COMPLETE PER FLOW SHEET. VSS. NO NEW CHANGES. WILL CONTINUE TO MONITOR
--- NOTE | 2017-03-01 05:50 | NUR ---
ELISE AT BEDSIDE. L CHEST JORDAN DRAIN REMOVED, INTACT. NO NEW FINDINGS. VSS WILL CONTINUE TO MONITOR
--- NOTE | 2017-03-01 07:30 | NUR ---
SHIFT ASSESSMENT VIA FLOWSHEET, SEE FOR DETAILS.
--- NOTE | 2017-03-01 08:35 | NUR ---
and Kmi RN in room to see patient. Discussed POC with patient and family.
--- NOTE | 2017-03-01 08:45 | NUR ---
LINES D/C'D PER ORDER. A LINE D/C'D WITH CATH TIP INTACT. FINLEY CATHETER D/C'D AND URINAL PROVIDED. VSS. PT VOICES NO ADDITIONAL NEEDS AT THIS TIME. FAMILY AT BEDSIDE, ALL QUESTIONS ANSWERED. CALL LIGHT WITHIN REACH.
--- NOTE | 2017-03-01 10:25 | NUR ---
PHYSCIAL THERAPY HERE TO WORK WITH PATIENT.
--- NOTE | 2017-03-01 10:30 | NUR ---
PT AMBULATED 200FT WITH PHYSICAL THERAPY, STEADY GAIT NOTED.
--- NOTE | 2017-03-01 13:15 | NUR ---
CVL D/C'D WITH CATH TIP INTACT. DISCHARGE TEACHING PROVIDED, PT VERBALIZES UNDERSTANDING.
--- NOTE | 2017-03-01 13:30 | NUR ---
PT TO FRONT ENTRANCE VIA WHEELCHAIR.
== END 2017-03-01 13:30 | disposition home or self-care (01) | DRG 39 ==
LOC: D.SDCHOLD 05:09 → D.CVICU 05:09 → D.SDCHOLD 07:30 → D.CVICU 09:01
PROVIDERS: ADMIT Internal Medicine Cardiovascular Disease
PROC: 03UL0JZ Supplement Left Internal Carotid Artery with Synthetic Substitute, Open Approach (ICD-10-PCS; 2017-02-28)
PROC: 03CL0ZZ Extirpation of Matter from Left Internal Carotid Artery, Open Approach (ICD-10-PCS; principal; 2017-02-28 07:30)
DX: I65.23 Occlusion and stenosis of bilateral carotid arteries (principal); I70.213 Atherosclerosis of native arteries of extremities with intermittent claudication, bilateral legs; E11.42 Type 2 diabetes mellitus with diabetic polyneuropathy; I10 Essential (primary) hypertension; E78.00 Pure hypercholesterolemia, unspecified; Z87.891 Personal history of nicotine dependence

== ENCOUNTER 2017-04-11 05:04 | Inpatient (IN) | payer MEDICARE ==
--- NOTE | 2017-04-08 14:05 | HP ---
PATIENT: ANA LILIA FLORES MEDICAL RECORD: [id number] ACCOUNT: [id number] LOCATION:[facility] : 43 ADMISSION DATE: 04/11/17 HISTORY AND PHYSICAL EXAMINATION ANA LILIA Nicholas (72yo, M) ID# [id number]. Date/Time03/15/2017 10:[id number] [facility] Dept.NP_[place] [facility] ClinicProviderCOREY MOCK MDInsuranceMed Primary: [place] ([place]) Insurance # : [id number] Referring Provider Name : JA MIGUEL Employer Name : UNKNOWN Med Secondary: AARP (MEDICARE SUPPLEMENT) Insurance # : [id number] Employer Name : UNKNOWN Prescription: ORX - Member is eligible. Chief Complaint Followup: Intermittent claudication due to atherosclerosis of [place] artery of limb Followup: Carotid artery stenosis s/p LCEA 02/28/17 3 weeks Patient's Care Team Referring Provider (): JA MIGUEL: [address], [address], [place] [address], , Lead Sprinkler: MIS ROBERSON MD: [address] [place] [phone], , Patient's Pharmacies [facility] ([facility]): [address] [place] [address] [place] [address], , Vitals BP:122/60 sitting R arm 03/15/2017 10:48 amHR:80R/R 03/15/2017 10:48 amHt:5 ft 10 in 03/15/2017 10:45 amWt:220 lbs 03/15/2017 10:47 amBMI:31.6 03/15/2017 10:47 amAllergies Reviewed Allergies NKDAMedications Reviewed Medications aspirin 81mg daily02/12/17 enteredCindy Brownatorvastatin 40 mg rwaaga58/01/17 filledPRESCRIPTION SOLUTIONSFish Oil02/12/17 enteredCindy Ohtdvvptblo51/24/17 Ayad Gibbslidocaine 5 % topical ojmvtsyy64/31/16 filledPRESCRIPTION SOLUTIONSLyrica 150 mg capsule Take 1 capsule(s) twice a day by oral route.03/03/17 filledPRESCRIPTION SOLUTIONSmeloxicam 15 mg tablet Take 1 tablet(s) every day by oral route.02/12/17 Ayad GibbsFaqgopdvzfqdccyrl83/24/17 Ayad Gibbstemazepam 30 mg hjceyxf13/12/17 filledPRESCRIPTION SOLUTIONSVitamin C002/12/17 Ayad GibbsVaccines Reviewed Vaccines Some vaccines listed in Document: #[id number] could not be added to this patient's chart. Please review this document and add these vaccines to the patient's chart manually as needed. Problems Reviewed Problems Carotid artery stenosis - Onset: 02/27/2017 Intermittent claudication due to atherosclerosis of [place] artery of limb - Onset: HISTORY AND PHYSICAL [id number] ANA LILIA FLORES 02/23/2017 Atherosclerosis of arteries of the extremities - Onset: 02/12/2017 Family History Reviewed Family History Father- Myocardial infarctionSocial History Reviewed Social History Cardiology Family history of heart disease?: Y Smoking Status: Former smoker High Cholesterol: Y High blood pressure: Y Diabetes: N Surgical History Reviewed Surgical History Other - DIRECTOR CRITICAL CARE/stent Right leg Other - bladder cancer Past Medical History Reviewed Past Medical History Heart stents: Y High Blood Pressure: Y Hyperlipidemia: Y Pain in legs when walking: Y Peripheral Vascular Disease (PVD): Y Documents for Discussion N/A Screening None recorded. HPI Post-Op Visit Reported by patient. Associated Symptoms: incision healing well; no fatigue; normal appetite; normal bowel function; no constipation; no nausea; no emesis; pain improving; no pain; no fever; no bleeding; no lower extremity edema/pain; no dysuria/urinary symptoms Notes: "ready to get my leg fixed." post carotid endarterectomy ROS ROS as noted in the HPI Physical Exam Patient is a 72-year-old male. Post Operative Exam: General Appearance: no swelling, tenderness, or warmth and wound clean and dr y, appropriate range of motion, and neurovascular intact. Assessment / Plan post carotid endarterectomy progressing well 1. Carotid artery stenosis I65.29: Occlusion and stenosis of unspecified carotid artery CAROTID STENOSIS: CARE INSTRUCTIONS 2. Intermittent claudication due to atherosclerosis of [place] artery of limb I70.213: Atherosclerosis of [place] arteries of extremities with intermittent claudication, bilateral legs HISTORY AND PHYSICAL [id number] ANA LILIA FLORES Discussion Notes we'll need left femoral-popliteal bypass after March COREY MOCK MD at 1405 CC: [id number] DICTATION DATE: 03/15/17 1000 DIRECTOR COST: NANCY 04/06/17 0941 PRE IN [facility] [address] [place] [address]
[2017-04-10 14:59] LABS: BASOPHILS 0.3 % (0-2); EOSINOPHILS 4.5 % (0-7); HEMOGLOBIN 14.2 g/dL (13.5-17.5); IMMATURE GRANULOCYTES 0.3 % (0-5); LYMPHOCYTES 42.7 % (15-50); MCH 31.3 pg (26.0-34.0); MCHC 33.8 g/dL (31.0-37.0); MCV 92.5 fL (80.0-100.0); MEAN PLATELET VOLUME 10.7 fL (7.4-10.4); MONOCYTES 7.8 % (2-11); NEUTROPHILS 44.4 % (40-80); PLATELET COUNT 260 10x3/uL (130-400); RBC 4.54 10x6/uL (4.20-6.10); RDW 12.9 % (11.5-14.5)
[2017-04-10 15:19] LABS: ALBUMIN 3.6 g/dL (3.4-5.0); ALKALINE PHOSPHATASE 217 U/L (46-116); ALT (SGPT) 29 U/L (10-68); BILIRUBIN - TOTAL 0.46 mg/dL (0.2-1.3); CALC OSMOLALITY 281 mosm/kg (275-300); CALCIUM 8.7 mg/dL (8.5-10.1); CARBON DIOXIDE 26.8 mmol/L (21.0-32.0); CHLORIDE - SERUM 107 mmol/L (98-107); GLUCOSE 83 mg/dL (74-106); POTASSIUM - SERUM 4.4 mmol/L (3.5-5.1); PROTEIN - SERUM 6.8 g/dL (6.4-8.2); SODIUM 142 mmol/L (136-145); UREA NITROGEN 12 mg/dL (7-18); eGFR NON AFRICAN AMERICAN 78 mL/min (90-120)
[2017-04-10 15:25] LABS: APTT 26.2 SECONDS (22.8-39.4); INR 0.95 (0.85-1.17); PROTIME 12.5 SECONDS (11.6-15.0)
[2017-04-10 15:59] LABS: APPEARANCE CLEAR (CLEAR); BILIRUBIN NEGATIVE (NEGATIVE); COLOR YELLOW (YELLOW); GLUCOSE NEGATIVE (NEGATIVE); KETONE NEGATIVE (NEGATIVE); LEUKOCYTE ESTERASE NEGATIVE (NEGATIVE); NITRITE NEGATIVE (NEGATIVE); PROTEIN NEGATIVE (NEGATIVE); UROBILINOGEN NORMAL (NORMAL)
[2017-04-11] VITALS (50 sets, daily range): BP systolic 90–134; BP diastolic 47–79; BMI 30.7; BMI 31.8
[~2017-04-11] VITALS: Ht 177.8 cm; Wt 103.2 kg
--- NOTE | ~2017-04-11 | OP ---
PATIENT NAME: ANA LILIA FLORES MEDICAL RECORD: [id number] :41 [address] D.CV03 ADMISSION DATE:04/11/17 SURGEON: HAM BAJWA MD DATE OF OPERATION: 04/11/2017 SURGEON: Ham Bajwa MD. ANESTHESIA: General, Dr. Alexander. OPERATIONS PERFORMED: 1. Left ilio-distal popliteal artery bypass utilizing 7-4 tapered graft. 2. Left external iliac endarterectomy. PREOPERATIVE DIAGNOSIS: Severe claudication of the left lower extremity with total occlusion of the left distal, superficial and popliteal artery. POSTOPERATIVE DIAGNOSIS: Severe claudication of the left lower extremity with total occlusion of the left distal, superficial and popliteal artery. INDICATION FOR OPERATION: Life-limiting claudication. FINDINGS OF THE OPERATION: The distal vessel was soft and graftable. The saphenous vein was inadequate for grafting. The proximal disease was severe in the common femoral artery. Therefore, in order to be able to open the artery, we had to expose the distal iliac artery. The graft was a Bard Impra 7-4 tapered graft. ESTIMATED BLOOD LOSS: Less than 150 mL. DESCRIPTION OF THE PROCEDURE: After informed consent, adequate preoperative medication evaluation, the patient was brought to the operating room, placed on the table in supine position. After induction of general anesthesia and application of appropriate monitoring devices, the abdomen and left leg were prepped and draped in a sterile field utilizing Betadine scrub, alcohol and Betadine solution. A Betadine-impregnated drape was also used. An incision was made below the knee medial to the tibia, and dissection carried down to the fascia. The fascia was opened. The popliteal artery was dissected free of surrounding structures, protecting the neurologic and venous structure. The popliteal artery was surrounded with a vessel loop. The search for the greater saphenous vein demonstrated a small inadequate vein for utilizing as a femoral popliteal graft. Therefore, a left groin incision was made and dissection carried down to the fascia. Hemostasis maintained with electrocautery. The left iliac was exposed under the inguinal ligament utilizing sharp and blunt dissection. The common femoral artery was severely calcified and could not be opened. Therefore, the distal iliac artery was dissected further into the abdomen, surrounded with vessel loops then the tributaries surrounded with vessel loops. A 7-4 graft was then tunneled utilizing a Angella tunneler from the distal popliteal artery below the knee to the groin. The distal anastomosis was accomplished end-to-side to the very distal popliteal artery utilizing a running 6-0 [place]-Jake suture. Attention was then turned toward the left groin. The inguinal ligament elevated, clamp supplied. The artery was opened. The artery required endarterectomy to gain access. The anastomosis was then carried out with running 5-0 [place]-Jake suture end to side. All maneuvers to remove trapped air were performed, the anastomosis secured and the clamps removed OPERATIVE REPORT [id number] ANA LILIA FLORES sequentially. There was excellent distal flow in the popliteal artery by palpation and by Doppler. The patient was given a calculated dose of Protamine to reverse the heparin. Hemostasis was achieved. Wounds were irrigated with copious amounts of antibiotic solution and normal saline. No active bleeding. The distal [id number]-esi-bnln incision was closed with 2-0 Vicryl along the fascia, 3-0 Vicryl on the superficial subcutaneous tissue and skin approximated with skin kathryn. The left groin was closed utilizing 2-0 Vicryl on deep subcutaneous tissue, 3-0 Vicryl in the superficial subcutaneous tissue and skin approximated with 5-0 subcuticular Monocryl. Sterile dressings were applied. The patient tolerated the procedure well and transferred to cardiovascular recovery in satisfactory condition. TRANSINT:[id number] Voice Confirmation ID: [id number] DOCUMENT ID: [id number] HAM BAJWA MD CC: [id number] DICTATION DATE: 04/11/17 1151 CURVE CLEANER: 04/11/17 1308 [facility] [address] [place] [address]
[~2017-04-11 05:04] MED LIST changes: +GINKGO BILOBA120 MG PO; +LYRICA150 MG PO
--- NOTE | 2017-04-11 12:00 | NUR ---
RECIEVED FROM OR. CONNECTED TO ICU MONITORS. FULL ASSESSEMENT COMPLETE PER FLOWSEET.
--- NOTE | 2017-04-11 12:15 | NUR ---
HYPOTENSIVE. STARTED LEVOPHED PER ORDERS.
[2017-04-11 12:45] LABS: HEMATOCRIT 35.8 % (42.0-54.0); HEMOGLOBIN 12.2 g/dL (13.5-17.5)
--- NOTE | 2017-04-11 13:00 | NUR ---
ANTOINETTE CHECKS COMPLETE. PPP. WILL CONT TO ASSESS
--- NOTE | 2017-04-11 15:00 | NUR ---
AT BEDSIDE. UPDATE PROVIDED.
--- NOTE | 2017-04-11 17:00 | NUR ---
TITRATING LEVOPHED AND DOPAMINE TOLERATED.
--- NOTE | 2017-04-11 19:00 | NUR ---
REPORT RECEIVED AND ASSESSMENT COMPLETED. PT IS POST OP FEM-POP OF DR REYNOLDS. PULSES PALPABLE IN OPERATIVE LEG. LEFT PEDAL PULSE IS WEAKE THOUGH STILL FELT WITHOUT DOPPLER. NO SIGN OF HEMATOMA AT THIS TIME. PT IS ON DOPAMINE AND LEVOPHED. WILL ATTEMPT TO TITRATE AND WEAN OFF TOLERATED. VSS. WILL MONITOR THROUGHOUT SHIFT
--- NOTE | 2017-04-11 19:00 | NUR ---
REPORT RECEIVED AND ASSESSMENT COMPLETED. PT IS POST OP FEM-POP BY DR MOCK. ALL PULESES PALPABLE WITHOUT USE OF DOPPLER; HOWEVER, PULSES IN LOWER EXTREMS ARE WEAK. NO SIGNS OF HEMATOMA AT THIS TIME. PT IS ON LEVOPHED, AND DOPAMINE AT THIS TIME. WILL ATTEMPT TO WEAN OFF ORDERED. VSS. WILL MONITOR
--- NOTE | 2017-04-11 21:00 | NUR ---
2100 MEDS GIVEN AT THIS TIME. VSS. NO CHANGES IN PT STATUS TO REPORT. WILL MONITOR
--- NOTE | 2017-04-11 23:00 | NUR ---
REASSESSMENT COMPLETED. SEE FLOWSHEET FOR FULL DETAILS. PT REPOSITIONED, AND PULSES CHECKED. STILL PALPABLE. WILL CONTINUE TO MONITOR.
[2017-04-12] VITALS (44 sets, daily range): BP systolic 97–142; BP diastolic 46–92; Ht 177.8 cm; Wt 103.2 kg
--- NOTE | 2017-04-12 01:10 | NUR ---
PT RESTING COMFORTABLY. PEDAL PULSES WEAK AND FOUND VIA DOPPLER. VSS. NO NEW CHANGES. WILL CONTINUE TO MONITOR
--- NOTE | 2017-04-12 03:00 | NUR ---
REASSESSMENT COMPLETED. PULSES IN LOWER EXTREMETIES STILL PALPABLE; HOWEVER, DOPPLER WAS USED TO CONFIRM CIRCULATION. NOREPI HAS BEEN TURNED OFF AT THIS TIME. WILL CONTINUE TO WEAN DRIPS POSSIBLE. VSS. WILL MONITOR
--- NOTE | 2017-04-12 05:21 | NUR ---
CONTINUING TO WEAN OFF OF MEDICATIONS. NO OTHER CHANGES IN STATUS AT THIS TIME. VSS. WILL MONITOR
[2017-04-12 06:07] LABS: HEMATOCRIT 30.6 % (42.0-54.0); HEMOGLOBIN 10.4 g/dL (13.5-17.5); MCH 31.6 pg (26.0-34.0); MEAN PLATELET VOLUME 10.4 fL (7.4-10.4); RBC 3.29 10x6/uL (4.20-6.10); RDW 13.1 % (11.5-14.5); WBC 6.9 10x3/uL (4.8-10.8)
[2017-04-12 06:27] LABS: ALBUMIN 2.5 g/dL (3.4-5.0); ALKALINE PHOSPHATASE 79 U/L (46-116); ALT (SGPT) 22 U/L (10-68); BILIRUBIN - TOTAL 0.56 mg/dL (0.2-1.3); CALC OSMOLALITY 284 mosm/kg (275-300); CALCIUM 7.3 mg/dL (8.5-10.1); CARBON DIOXIDE 28.4 mmol/L (21.0-32.0); CHLORIDE - SERUM 109 mmol/L (98-107); CREATININE - SERUM 0.9 mg/dL (0.6-1.3); GLUCOSE 100 mg/dL (74-106); POTASSIUM - SERUM 3.8 mmol/L (3.5-5.1); PROTEIN - SERUM 5.3 g/dL (6.4-8.2); SODIUM 143 mmol/L (136-145); UREA NITROGEN 13 mg/dL (7-18); eGFR NON AFRICAN AMERICAN 88 mL/min (90-120)
--- NOTE | 2017-04-12 07:00 | NUR ---
ASSESSMENT COMPLETE PER FLOWSHEET. VOICES NO CO AT TIME.
--- NOTE | 2017-04-12 10:00 | NUR ---
SITTING UP IN CHAIR. VOICES NO CO AT TIME.
--- NOTE | 2017-04-12 10:14 | NUR ---
PT IN ROOM GETTING PT UP.
--- NOTE | 2017-04-12 12:00 | NUR ---
VOICES NO CO AT TIME. UP IN CHAIR EATING LUNCH.
--- NOTE | 2017-04-12 14:04 | NUR ---
* Is the patient Alert and Oriented? Yes 0 * How many steps to enter\exit or inside your home? 0 0 * PCP Dr. Sanchez David 0 * [facility] 0 * Preadmission Environment Home with Family 0 * ADLs Independent 0 * List name and contact numbers for known caregivers / representatives who currently or will assist patient after discharge: Spouse - Kaylie Ledbetter [phone] 0 * Additional services required to return to the preadmission environment? No 0 * Can the patient safely return to the preadmission environment? Yes 0 * Has this patient been hospitalized within the prior 30 days at any hospital? No Patient Name: ANA LILIA FLORES Admission Status: Elective Accout number: [id number] Admission Date: 04-11-2017 : 1945 Admission Diagnosis: Attending: COREY MOCK Current LOS: 1 Planned Disposition: Home Primary Insurance: MEDICARE A & B Discharge Planning Comments: CM met with patient to assess dc plans/needs. Patient states he lives at home with his , Kaylie Ledbetter. He reports he is independent with all ADL's & IADL's. He has not had home health services in the past. He has a walker at home should he need it. At dc, he will return home with his . No needs identified or verbalized at this time. CM will follow. Photo Lab Specialist: Sun Hernandez
--- NOTE | 2017-04-12 15:00 | NUR ---
UP IN CHAIR DOING IS. VOICES NO CO AT TIME.
--- NOTE | 2017-04-12 17:00 | NUR ---
UP IN CHAIR EATING SUPPER.
--- NOTE | 2017-04-12 17:31 | NUR ---
UP IN CHAIR EATING SUPPER. VOICES NO CO AT TIME.
--- NOTE | 2017-04-12 19:00 | NUR ---
REPORT RECIEVED. ASSESSMENT COMPLETE PER FLOW SHEET. VSS.WILL CONTINUE TO MONITOR
--- NOTE | 2017-04-12 20:50 | NUR ---
ASSISTED TO BR. 250 CC UZIEL URINE NOTED. VSS WILL CONTINUE TO MONITOR
--- NOTE | 2017-04-12 21:00 | NUR ---
FAMILY AT BEDSIDE. JESSICA PETTIT.
--- NOTE | 2017-04-12 21:40 | NUR ---
PRN NORCO ADM FOR PAIN 03/01 GENERALIZED. DENIES FURTHER NEEDS.
[2017-04-13] VITALS (8 sets, daily range): BP systolic 95–127; BP diastolic 47–75
--- NOTE | 2017-04-13 01:10 | NUR ---
ASSISTED TO BR 200 CC UZIEL URINE NOTED. VSS. WILL CONTINUE TO MONITOR
--- NOTE | 2017-04-13 03:59 | NUR ---
REASSESSMENT COMPLETE PER FLOW SHEET. VSS NO NEW CHANGES. WILL CONTINUE TO MONITOR
--- NOTE | 2017-04-13 05:20 | NUR ---
HR ALARMING PT ATTEMPT OOB ASSISTED TO BR 200 CC UZIEL URINE NOTED. VSS. NO FURTHER NEW CHANGES GIVEN ICE WATER FOR COMFORT. VSS WILL CONTINUE TO MONITOR
[2017-04-13] MEDS ORDERED: HYDROCODONE-APA1 TAB PO (08:49)
--- NOTE | 2017-04-13 12:27 | NUR ---
1115 PT AT BEDSIDE -REVIEWED ALL DIRECTIONS STATED BY DR MOCK WITH -PT POOR OR NO RECALL - STAES MEMORY IS VERY POOR-INFORMED OF STAPLE REMOVAL APR 23 AND APPOINTMENT CARD-WHEN SITTING L LEG ELEVATED ABOVE HEART-WILL REDUCE L LEG SWELLING-REMOVE ALL DRESSINGS ON SUNDAY AT HOME AND MAY SHOWER ON SUNDAY-NO IMMERSION IN WATER-L CVL REMOVED -2 SUTURES REMOVED AND PER FROTOCOL
--- NOTE | 2017-04-13 12:43 | NUR ---
1215-DISCHARGED VIA WHEELCHAIR
== END 2017-04-13 12:44 | disposition home or self-care (01) | DRG 271 ==
LOC: D.SDCHOLD 05:04 → D.CVICU 05:04 → D.SDCHOLD 07:30 → D.CVICU 11:27
PROVIDERS: ADMIT Internal Medicine Cardiovascular Disease
PROC: 04CJ0ZZ Extirpation of Matter from Left External Iliac Artery, Open Approach (ICD-10-PCS; principal; 2017-04-11 07:30)
PROC: 041 Lower Arteries, Bypass (ICD-10-PCS; principal; 2017-04-11 07:30)
DX: I70.213 Atherosclerosis of native arteries of extremities with intermittent claudication, bilateral legs (principal); I70.92 Chronic total occlusion of artery of the extremities; I10 Essential (primary) hypertension; E78.5 Hyperlipidemia, unspecified

== ENCOUNTER → 2017-09-25 12:26 | Outpatient (CLI) | payer MEDICARE ==
[2017-04-12 11:02] VITALS: BMI 32.4
[~2017-09-25 12:26] MED LIST changes: +HYDROCODONE-APA1 TAB PO
== END | disposition home or self-care (01) ==
LOC: D.US 12:26
DX: I65.23 Occlusion and stenosis of bilateral carotid arteries (principal)

== ENCOUNTER → 2017-11-28 07:33 | Outpatient (CLI) | payer MEDICARE ==
[2017-04-12 11:02] VITALS: BMI 32.4
== END | disposition home or self-care (01) ==
LOC: D.MRI 07:33
DX: R41.3 Other amnesia (principal)

== ENCOUNTER → 2018-01-04 14:29 | Outpatient (CLI) | payer MEDICARE ==
[2017-04-12 11:02] VITALS: BMI 32.4
== END | disposition home or self-care (01) ==
LOC: D.US 14:29
DX: M79.605 Pain in left leg (principal); M79.604 Pain in right leg

== ENCOUNTER 2018-01-10 13:43 | Inpatient (IN) | payer MEDICARE ==
[~2018-01-10] VITALS: Ht 177.8 cm; Wt 96.5 kg
--- NOTE | ~2018-01-10 | HP ---
PATIENT: ANA LILIA FLORES MEDICAL RECORD: [id number] ACCOUNT: [id number] LOCATION:[facility]2302 : 43 ADMISSION DATE: 01/10/18 HISTORY AND PHYSICAL EXAMINATION ANA LILIA Nicholas (72yo, M) ID# [id number]. Date/Time01/10/2018 10:50TVMEI34/1945[facility] Dept.[facility] [facility] ClinicProviderKURT MOCK MDInsuranceMed Primary: [place] (MED[place]ARE) Insurance # : [id number] Referring Provider Name : WALKER TANG Employer Name : UNKNOWN Med Secondary: [employer] (MEDICARE SUPPLEMENT) Insurance # : [id number] Referring Provider Name : WALKER TANG Employer Name : UNKNOWN Prescription: ORX - Member is eligible. Chief Complaint Followup: Intermittent claudication due to atherosclerosis of [place] artery of limb Followup: Carotid artery stenosis s/p LCEA 02/28/17 s/p L iliodistal popliteal artery bypass, L external iliac endarterectomy 04/11/17 f/u bilateral LE arterial doppler, bilateral MARICEL Patient's Care Team Referring Provider (): WALKER TANG: [address] [place] [phone], , Fish Receiver: MIS ROBERSON MD: [address] [place] [address], , Patient's Pharmacies [facility] ([facility]): [address] [facility] [address], , Vitals BP:130/70 sitting L arm 01/10/2018 10:41 amBP Cuff Size:adult 01/10/2018 10:41 amHR:66,reg 01/10/2018 10:42 amHt:5 ft 10 in 01/10/2018 10:38 amWt:215 lbs 01/10/2018 10:42 amNotes:can walk only about 100 feet in the past two weeks before severe pain begins in the front of both legs. Also legs 'fall asleep', feet feel numb with activity as well. With rest, the pain stops, feet are numbness and burning constantly tho01/10/2018 10:44 amBMI:30.8 01/10/2018 10:42 amAllergies Reviewed Allergies NKDAMedications Reviewed Medications aspirin 81mg daily02/12/17 [facility] Gibbsatorvastatin 40 mg /15/18 filledPRESCRIPTION SOLUTIONSclopidogrel 75 mg tablet TAKE 1 TABLET BY MOUTH EVERY DAY THANK YOU12/04/17 filledPRESCRIPTION SOLUTIONSFish Oil02/12/17 [facility] GibbsFxbaakerkpk35/24/17 [facility] GibbsHYDROcodone 10 mg-acetaminophen 325 mg inovpb45/22/17 filledPRESCRIPTION SOLUTIONSKET/IRAM/GABY/LIDO 20/6/4/5 % CREAM Grams APPLY 1 TO 4 GRAMS DIRECTLY TO THE SITE OF PAIN 3 TO 4 TIMES DAILY10/19/17 filledsurescriptslidocaine 5 % topical trxmhvya81/31/16 filledPRESCRIPTION SOLUTIONSLyrica 150 mg capsule Take 1 capsule(s) twice a day by oral route.12/04/17 filledPRESCRIPTION SOLUTIONSmeloxicam 15 mg tablet Take 1 tablet(s) every day by oral route.12/04/17 filledPRESCRIPTION TTDPLXAECxmaesilovixc95/24/17 [facility] Gibbstemazepam 30 mg qyrhsne72/16/18 filledPRESCRIPTION SOLUTIONSVitamin C002/12/17 adrienneOrquideahayden Gibbs HISTORY AND PHYSICAL [id number] ANA LILIA FLORES Some medications listed in Document: #[id number] could not be added to this patient's chart. Please review this document and add these medications to the patient's chart manually as needed. Vaccines Reviewed Vaccines Some vaccines listed in Documents: #[id number], #[id number] could not be added to this patient's chart. Please review these documents and add these vaccines to the patient's chart manually as needed. Problems Reviewed Problems Carotid artery stenosis - Onset: 02/27/2017 Intermittent claudication due to atherosclerosis of [place] artery of limb - Onset: 02/23/2017 Atherosclerosis of arteries of the extremities - Onset: 02/12/2017 Family History Reviewed Family History Father- Myocardial infarctionSocial History Reviewed Social History Cardiology Family history of heart disease?: Y Smoking Status: Former smoker High Cholesterol: Y High blood pressure: Y Diabetes: N Surgical History Reviewed Surgical History Other - [employer]/stent Right leg Other - bladder cancer ilio-distal popliteal artery bypass grafting, L external iliac endarterectomy 04/11/17 Past Medical History Reviewed Past Medical History Heart stents: Y High Blood Pressure: Y Hyperlipidemia: Y Pain in legs when walking: Y Peripheral Vascular Disease (PVD): Y Documents for Discussion N/A Screening None recorded. HPI Peripheral Vascular Disease Reported by patient. Location: foot; burt Quality: cramping; burning; aching; tingling Severity: severe Duration: has noted for months Onset/Timing: several times per day Context: during walking HISTORY AND PHYSICAL [id number] ANA LILIA FLORES Alleviating Factors: rest Aggravating Factors: walking Associated Symptoms: numbness; paresthesias; skin discoloration claudication left lower extremity ROS Patient reports exercise intolerance but reports no fever, no night sweats, no significant weight gain, and no significant weight loss; claudication bilaterally left greater than the right Severe peripheral neuropathy. He reports no dry eyes, no irritatio n, and no vision change. He reports no difficulty hearing and no ear pain. He reports no frequent nosebleeds and no nose/sinus problems. He reports no sore throat, no bleeding gums, no snoring, no dry mouth, no mouth ulcers, no oral abnormalities, and no t eeth problems. He reports no jugular vein distension and no swollen glands. He reports no chest pain, no arm pain on exertion, no shortness of breath when walking, no shortness of breath when lying down, no palpitations, and no known heart murmur. He repo r ts no cough, no wheezing, no shortness of breath, and no coughing up blood. He reports no abdominal pain, no vomiting, normal appetite, no diarrhea, not vomiting blood, no nausea, and no constipation. He reports no incontinence, no difficulty urinating, n o hematuria, and no increased frequency. He reports no muscle aches, no muscle weakness, no arthralgias/joint pain, no back pain, and no swelling in the extremities. He reports no abnormal mole, no jaundice, and no rashes. He reports no loss of consciousne s s, no weakness, no numbness, no seizures, no dizziness, and no headaches. He reports no depression, no sleep disturbances, feeling safe in relationship, and no alcohol abuse. He reports no fatigue. He reports no swollen glands and no bruising. He reports no runny nose, no sinus pressure, no itching, no hives, and no frequent sneezing. ROS as noted in the HPI Physical Exam Patient is a 72-year-old male. Constitutional: General Appearance well nourished and developed and healthy-appearing. Level of Distress NAD. Ambulation limited ambulation. Cardiovascular: Apical Impulse not displaced or no thrill. Heart Auscultation normal s1 and s2; no murmurs, rubs, or gallops; and RRR. Arterial Pulses no abdominal aorta bruits, femoral bruits, or popliteal bruits; popliteal not palpable (bilaterally) and dorsalis pedis not palpable(bilaterally); and 2+ bilateral, carotid 2+ bilateral, and femoral 2+ bilateral. Edema no edema or varicosities. Lungs: Repiratory Effort no dyspnea. Percussion no hyperresonance or dullness or flatness. Auscultation no wheezing, rhonchi, or rales / crackles and breathing sounds normal, good air movement, and CTA except as noted. Abdomen: Bowl Sounds normal. Inspection and Palpation no tenderness, guarding, masses, or rebound tenderness and soft and non-distended. Liver non-tender and no hepatomegaly. Spleen non-tender and no splenomegaly. Hernia none palpable. Musculoskeletal System: Gait And Stance irregular gait and stance. Digits and Nails normal nails and no cyanosis. Neurologic: Cranial Nerves grossly intact. Reflexes DTRs 2+ bilaterally throughout. Sensation grossly intact. Lymph Nodes: Lymph Nodes no cervical LAD, supraclavicular LAD, axillary LAD, or inguinal LAD. HISTORY AND PHYSICAL [id number] ANA LILIA FLORES Eyes: Lids and Conjunctivae no discharge or pallor and non-injected. Pupils PERRLA. Cornea grossly intact. EOM EOMI. Lens clear. Sclerae non-icteric. Neck: Neck no masses, enlarged lymph nodes, or carotid bruits and supple and trachea midline. Thyroid no enlargement or nodules and non-tender; severe stenosis left internal carotid artery however he has no bruits. Skin: Inspection and Palpation no rash, lesions, ulcers, jaundice, or abnormal nevi. Assessment / Plan clotted left ileo-distal pop bypass 1. Carotid artery stenosis I65.29: Occlusion and stenosis of unspecified carotid artery CAROTID STENOSIS: CARE INSTRUCTIONS 2. Intermittent claudication due to atherosclerosis of [place] artery of limb I70.219: Atherosclerosis of [place] arteries of extremities with intermittent claudication, unspecified extremity Discussion Notes CTA abdomen and pelvis lower extremity Patient will most likely need admission for thrombolysis COREY MOCK MD at 1358 CC: [id number] DICTATION DATE: 01/10/18 1010 PROCESS TRAINER: NANCY 01/11/18 0850 ADM IN [facility] [address] [place] [address]
--- NOTE | ~2018-01-10 | HEMODYNAMI ---
PATIENT:ANA LILIA FLORES MEDICAL RECORD: [id number] : 41 LOCATION:[place] [address] ADMISSION DATE: 01/10/18 Generatedon:01/11/201811:34 Patient name: ANA LILIA FLORES Patient #: [id number] SSN: DO B: 1945 Date of study: 01/11/2018 Page: Of Hemodynamic Procedure Report Patient Data Patient Demographics Procedure consent was obtained First Name: ANA LILIA Gender: Male Last Name: SANDRA : 1945 Middle Initial: RAY Age: 72 year(s) Patient #: [id number] Race: Unknown Additional ID: [id number] Contact details Address: [address] [place] [address] [address]IVE State: [place] City: [place] Zip code: [address] Past Medical History Allergies: No known allergies Admission Admission Data Admission Date: 01/10/2018 Admission Time: 16:56 Room #: [facility] Height (in.): 70 BSA: 2.14 (m2) Height (cm.): 177.8 BMI: 30.56 (kg/m2) Weight (lbs.): 213 Weight (kg.): 96.62 Procedure Procedure Types Cath Procedure Peripheral Cath Diagnostic Procedure Cath Peripheral Abd/Extremity Extremities Bilat Lower Extremity Procedure Description Procedure Date Procedure Date: 01/11/2018 Procedure Start Time: 10:25 Procedure Staff Name Function Aniceto Plascencia MD Performing Physician Mercedez Ramirez RT Metal Leaf Layer Mercedez Ramirez RT Monitor Rosenda Philippe RN Nurse Dell Lindsey RT Scrub Procedure Data Cath Procedure Fluoroscopy Diagnostic fluoroscopy Total fluoroscopy Time: 7.2 time: 7.2 min min Diagnostic fluoroscopy Total fluoroscopy dose: 684 dose: 684 mGy mGy Contrast Material Contrast Material Type Amount (ml) Isovue 300 85 Diagnostic catheters Device Type Used For End Catheter Placement Merit ULTRA BOLUS FLUSH 5Fr 65CM catheter ([id number]) Procedure Medications Medication Administration Route Dosage Fentanyl I.V. 50 mcg Versed I.V. 1 mg Oxygen etCO2 Nasal cannula 4 l/min Lidocaine 1% added to field 20 Heparin Flush Bag added to field 3 bags (1000units/500ml NS) Fentanyl I.V. 50 mcg Versed I.V. 1 mg Heparin Bolus 5000 units Heparin Drip I.V. drip 500 units/hr ([id number]/250 D5W) Activase(12.5mg/250 I.A. 20 ml/hr NS) Hemodynamics Rest BSA: 2.14 (m2) O2 Consumption: Estimated: 240.5 (ml/min) O2 Consumption indexed: Estimated:112.38 (ml/min/m) Heart Rate: 63 (bpm) Snapshots Pre Cath Intra NCS Post Cath Vital Signs Time Heart Resp SPO2 etCO2 NIBP (mmHg) Rhythm Pain Sedation Rate (ipm) (%) (mmHg) Status Level (bpm) 10:07:20 64 14 97 34.3 157/72(123) NSR 0 (11) 10(A) , No pain 10:11:36 64 11 97 33.6 143/80(115) NSR 0 (11) 10(A) , No pain 10:16:01 66 12 96 34.3 151/77(116) NSR 0 (11) 10(A) , No pain 10:20:25 63 11 96 32.8 160/79(114) NSR 0 (11) 10(A) , No pain 10:24:59 69 12 97 35.8 159/70(118) NSR 0 (11) 8(A) , No pain 10:29:21 57 5 99 36.5 142/69(93) NSR 0 (11) 8(A) , No pain 10:33:48 63 11 98 34.3 145/69(108) NSR 0 (11) 8(A) , No pain 10:38:08 62 16 93 25 114/69(98) NSR 0 (11) 8(A) , No pain 10:43:07 65 8 95 13.4 Measuring NSR 0 (11) 8(A) , No pain 10:43:13 65 7 95 13.4 136/68(105) NSR 0 (11) 8(A) , No pain 10:47:31 66 9 95 23.8 130/72(98) NSR 0 (11) 8(A) , No pain 10:51:51 67 11 96 23.9 140/67(95) NSR 0 (11) 8(A) , No pain 10:56:01 67 11 95 9.7 121/68(99) NSR 0 (11) 8(A) , No pain 11:00:15 66 12 96 26.1 135/73(115) NSR 0 (11) 8(A) , No pain 11:04:39 54 13 97 29.1 135/68(97) NSR 0 (11) 8(A) , No pain 11:08:59 61 13 96 32.8 135/73(98) NSR 0 (11) 8(A) , No pain 11:13:21 71 13 97 35.8 137/82(110) NSR 0 (11) 8(A) , No pain 11:18:20 66 12 97 0 Measuring NSR 0 (11) 8(A) , No pain 11:18:35 65 10 96 0 150/75(129) NSR 0 (11) 8(A) , No pain 11:22:57 62 13 92 0 151/73(104) NSR 0 (11) 8(A) , No pain 11:27:17 62 12 93 0 145/76(122) NSR 0 (11) 8(A) , No pain 11:31:42 0 146/74(114) NSR 0 (11) 8(A) , No pain Medications Time Medication Route Dose Verified Delivered Reason Not es Effectiveness by by 10:26:23 Fentanyl I.V. 50 mcg Aniceto Philippe RN sedation 10:26:37 Versed I.V. 1 mg Aniceto Philippe RN sedation 10:26:55 Oxygen etCO2 4 l/min Aniceto Baldwin Nasal Temo Philippe RN protocol cannula 10:27:33 Lidocaine 1% added 20ml vial Aniceto Baldwin to Plascencia Plascencia protocol field MD MENDOZA 10:27:48 Heparin Flush Bag added 3 bags Aniceto Baldwin (1000units/500ml to Plascencia Plascencia protocol NS) field MD MENDOZA 10:33:32 Fentanyl I.V. 50 mcg Aniceto louis Plascencia Plascencia sedation MD MENDOZA 10:33:44 Versed I.V. 1 mg Aniceto Moreland for Plascencia Plascencia sedation MD MENDOZA 10:50:18 Heparin Bolus IA 5000 units Aniceto Plascencia protocol MD MENDOZA 11:06:39 Heparin Drip I.V. 500units/hr Aniceto Baldwin (75019klsll/250 drip Temo Philippe RN protocol D5W) 11:32:52 Activase(12.5mg/250 I.A. 20 ml/hr Aniceto Baldwin NS) Temo Philippe RN protocol Procedure Log Time Note 9:27:30 Patient Height : 70 inches 9:28:00 Patient Weight : 213 lbs 9:29:32 Use device set IR Diagnostic 9:31:15 RAZA 260 wire ([id number]) opened to sterile field. 9:31:16 DOC .035 wire (A42932) opened to sterile field. 9:31:17 TUBING Contrast Injection High Pressure ([id number]) opened to sterile field. 9:31:18 PERCUTANEOUS ENTRY 19GA needle opened to sterile field. 9:31:19 SHEATH 5FR [place] (FTA416) opened to sterile field. 9:31:20 Tegaderm 4 x 4 (1626W) opened to sterile field. 9:31:21 Sterile Angiographic Pack opened to sterile field. 9:31:22 Bag Decanter (2002S) opened to sterile field. 9:31:22 ACIST Manifold (81813) opened to sterile field. 9:31:23 ACIST Hand Control (21542) opened to sterile field. 9:31:24 ACIST Syringe (81616) opened to sterile field. 9:52:54 Time tracking: Regular hours (M-F 7:00 - 5:00) 9:53:18 A [employer] ULTRA BOLUS FLUSH 5Fr 65CM catheter ([id number]) was advanced over the wire and used for . 9:53:44 Plan of Care:Hemodynamics will remain stable., Cardiac rhythm will remain stable., Comfort level will be maintained., Respiratory function will remain adequate., Patient/ family verbilizes understanding of procedure., Procedure tolerated without complication., Recovers from procedure without complications.. 9:53:57 Patient received from Med II to IR Alert and oriented. Tansferred to table in Supine position. 9:54:04 H&P Date Dictated: 01/11/2018 Within 30 days and on chart.. 9:54:06 Pre-procedure instructions explained to patient. 9:54:07 Pre-op teaching completed and patient verbalized understanding. 9:54:09 Family in waiting room. 9:54:12 Patient NPO since Midnight. 9:54:34 Patient diabetic? No. 9:54:38 Is patient on blood thinner?Yes 9:54:50 Patient allergic to No known allergies 9:54:55 Signed procedure consent form obtained from patient. 9:55:01 - 9:55:05 ----Pre-sedation anethsthesia assessment.---- 9:55:08 Previous problem with sedation/anesthesia? No ? 9:55:11 Snore? Yes 9:55:14 Sleep apnea? No 9:55:16 Deviated septum? No 9:55:20 Opens mouth fully? Yes 9:55:23 Sticks out tongue? Yes 9:55:26 Airway obstruction? No ? 9:55:31 Dentures? No ? 9:55:34 - 9:55:48 Pre procedure: left dorsailis pedis pulse 0-Absent 9:55:54 Pre procedure: left posterior tibial pulse 0-Absent 9:56:00 Pre procedure: left dorsailis pedis pulse Doppler 9:56:05 Pre procedure: right posterior tibial pulse Doppler 9:56:40 IV patent on arrival in left wrist with D5/.45%NaCl at KVO. 9:56:42 - 9:56:59 Right groin area was prepped with chlora-prep and draped in sterile fashion 9:57:02 - 10:05:51 ECG and BP/O2 sat monitors applied to patient. 10:05:52 Vital chart was started 10:05:54 Baseline sample Acquired. 10:05:55 Full Disclosure recording started 10:05:56 - 10:24:07 Physician arrived 10:24:44 --------ALL STOP TIME OUT------ 10:24:45 Final Timeout: patient, procedure, and site verified with staff and physician. All members of the team are in agreement. 10:25:18 Procedure started. 10:25:23 Local anesthetic to right femoral artery with Lidocaine 1% by Aniceto Plascencia MD.INITIAL ACCESS ONLY 10:26:23 Fentanyl 50 mcg I.V. was administered by Rosenda Philippe RN; for sedation; 10:26:37 Versed 1 mg I.V. was administered by Rosenda Philippe RN; for sedation; 10::55 Oxygen 4 l/min etCO2 Nasal cannula was administered by Rosenda Philippe RN; Per protocol; 10:27:33 Lidocaine 1% 20ml vial added to field was administered by Aniceto Plascencia MD; Per protocol; 10:27:48 Heparin Flush Bag (1000units/500ml NS) 3 bags added to field was administered by Aniceto Plascencia MD; Per protocol; 10:29:42 TORQUE DEVICE PLASTIC .038 ( TD01) opened to sterile field. 10:29:49 GLIDE WIRE ANGLE 180cm (OT5238) opened to sterile field. 10:32:28 GLIDE CATHETER 5FR ANGLED 100cm (CG508) opened to sterile field. 10:33:32 Fentanyl 50 mcg I.V. was administered by Aniceto Plascencia MD; for sedation; 10:33:44 Versed 1 mg I.V. was administered by Aniceto Plascencia MD; for sedation; 10:50:10 Procedure ended.(Physican Out) 10:50:18 Heparin Bolus 5000 units IA was administered by Aniceto Plascencia MD; Per protocol; 10:50:27 Fluoroscopy time 07.20 minutes. 10:50:44 Fluoroscopy dose: 684 mGy 10:50:44 Flurop Dose total: 684 10:50:49 Contrast amount:Isovue 300 85ml. 10:50:53 Procedure and supply charges have been captured, reviewed, submitted an d are correct. 11:06:39 Heparin Drip (19333nvvsh/250 D5W) 500units/hr I.V. drip was administere d by Rosenda Philippe RN; Per protocol; 11:11:04 Post Procedure Pulses reassessed and unchanged 11:32:52 Activase(12.5mg/250 NS) 20 ml/hr I.A. was administered by Roesnda Philippe RN; Per protocol; 11:33:47 Patient transfered to ICU with Bed. 11:34:08 Vital chart was stopped Device Usage Item Name Manufacture Quantity Catalog Number Hospital Part Current [facility] Lot# / Charge Number Stock Stock Serial# Code RAZA 260 wire Cook [employer] 1 [id number] 53448 [id number] 5 [id number] ([id number]) DOC .035 wire [employer] 1 [id number] 736809 004809 5 (H11539) TUBING Merit 1 [id number] 819163 505952 449706 5 Contrast Medical Injection High Pressure ([id number]) PERCUTANEOUS [employer] 1 C75359 764784 425732 5 [id number] ENTRY 19GA needle SHEATH 5FR Terumo 1 MGD214 230869 246720 112954 40 [place]rie (HJM093) Tegaderm 4 x 4 3M 1 1626W 166741 284327 896283 5 (1626W) Sterile Cardinal 1 [id number] 234936 649817 5 Angiographic Health Pack Bag Decanter Microtek 1 2002S 407480 99580 168980 5 (2001S) Medical Inc. ACIST Manifold Acist 1 26705 772139 863738 596123 5 (82676) Medical Systems Inc ACIST Hand Acist 1 66930 751156 341186 964006 5 Control Medical (41309) Systems Inc ACIST Syringe Acist 1 20632 913455 258521 038261 20 (87922) Medical Systems Inc Merit ULTRA Merit 1 [id number] 025804 767870 5 BOLUS FLUSH Medical 5Fr 65CM catheter ([id number]) TORQUE DEVICE Bronson 1 TD01 003994 915311 367219 5 PLASTIC .038 ( Scientific TD01) GLIDE WIRE Terumo 1 EF0653 081928 432961 662525 5 ANGLE 180cm (KL0807) GLIDE CATHETER Terumo 1 CG508 347763 14687 188860 4 5FR ANGLED 100cm (CG508) Signature Audit [place] Stage Time Signature Unsigned Intra-Procedure 01/11/2018 Mercedez Ramirez 11:34:05 AM RT(R) Signatures Monitor : Mercedez Ramirez RT Signature : Date : Time : [address] [address]
--- NOTE | ~2018-01-10 | HEMODYNAMI ---
PATIENT:ANA LILIA FLORES MEDICAL RECORD: [id number] : 41 [facility] ADMISS[facility] DATE: 01/10/18 Generatedon:01/11/201817:11 Patient name: ANA LILIA FLORES Patient #: [id number] SSN: DO B: 1945 Date of study: 01/11/2018 Page: Of Hemodynamic Procedure Report Patient Data Patient Demographics Procedure consent was obtained First Name: ANA LILIA Gender: Male Last Name: SANDRA : 1945 Middle Initial: RAY Age: 72 year(s) Patient #: [id number] Race: Unknown Additional ID: [id number] Contact details Address: [address] [place] [address] [address]IVE State: [place] City: [place] Zip code: [address] Past Medical History Allergies: No known allergies Admission Admission Data Admission Date: 01/10/2018 Admission Time: 16:56 Room #: [facility] Height (in.): 70 BSA: 2.14 (m2) Height (cm.): 177.8 BMI: 30.56 (kg/m2) Weight (lbs.): 213 Weight (kg.): 96.62 Procedure Procedure Types Cath Procedure Peripheral Cath Diagnostic Procedure Cath Peripheral Peripheral vascular Intervention Thrombolysis/Thrombectomy Thrombolysis Catheter Removal Procedure Description Procedure Date Procedure Date: 01/11/2018 Procedure Start Time: 16:35 Procedure Staff Name Function Aniceto Plascencia MD Performing Physician Mercedez Ramirez RT Contact And Service Clerks Supervisor Mercedez Ramirez RT Monitor Jessie Thomas RN Nurse Dell Lindsey RT Scrub Procedure Data Cath Procedure Fluoroscopy Diagnostic fluoroscopy Total fluoroscopy Time: time: 17.2 min 17.2 min Diagnostic fluoroscopy Total fluoroscopy dose: dose: 1285 mGy 1285 mGy Contrast Material Contrast Material Type Amount (ml) Isovue 300 75 Procedure Medications Medication Administration Route Dosage Versed I.V. 2 mg Heparin Flush Bag added to field 2 bags (1000units/500ml NS) Hemodynamics Rest BSA: 2.14 (m2) O2 Consumption: Estimated: 241.86 (ml/min) O2 Consumption indexed : Estimated:113.02 (ml/min/m) Heart Rate: 65 (bpm) Snapshots Pre Cath Intra NCS Post Cath Vital Signs Time Heart Resp SPO2 etCO2 NIBP (mmHg) Rhythm Pain Sedation Rate (ipm) (%) (mmHg) Status Level (bpm) 16:31:50 64 21 96 0 158/77(124) NSR 0 (11) 10(A) , No pain 16:36:16 60 15 95 0 160/75(118) NSR 0 (11) 10(A) , No pain 16:40:32 65 15 97 32.7 142/72(116) NSR 0 (11) 10(A) , No pain 16:44:54 69 17 99 22.3 139/67(102) NSR 0 (11) 10(A) , No pain 16:49:12 65 14 99 33.5 134/68(112) NSR 0 (11) 10(A) , No pain 16:53:32 62 23 99 31.2 145/69(114) NSR 0 (11) 10(A) , No pain 16:57:50 62 20 99 34.2 148/76(108) NSR 0 (11) 10(A) , No pain 17:02:10 67 15 100 34.2 149/68(103) NSR 0 (11) 10(A) , No pain 17:06:23 66 20 100 31.2 137/77(104) NSR 0 (11) 10(A) , No pain 17:11:21 67 16 99 36.4 Measuring NSR 0 (11) 10(A) , No pain 17:11:28 68 19 100 36.4 155/86(118) NSR 0 (11) 10(A) , No pain Medications Time Medication Route Dose Verified Delivered Reason Notes Effec tiveness by by 16:37:16 Versed I.V. 2 mg Aniceto Roman for Plascencia William ARCOS sedation 16:43:18 Heparin Flush added 2 Aniceto Moreland used for Bag to bags Plascencia Plascencia procedure (1000units/500ml field MD MENDOZA NS) Procedure Log Time Note 15:52:52 Patient Height : 70 inches 15:52:52 Patient Weight : 213 lbs 15:53:44 Use device set IR Diagnostic 16:11:22 Mercedez Ramirez RT(R) sent for patient. Start room use. 16:11:31 Time tracking: Regular hours (M-F 7:00 - 5:00) 16:11:35 Plan of Care:Hemodynamics will remain stable., Cardiac rhythm will remain stable., Comfort level will be maintained., Respiratory function will remain adequate., Patient/ family verbilizes understanding of procedure., Procedure tolerated without complication., Recovers from procedure without complications.. 16:11:41 Patient received from ICU to IR Alert and oriented. Tansferred to table in Supine position. 16:11:43 Correct patient and procedure confirmed by team. 16:11:48 Signed procedure consent form obtained from patient. 16:11:50 Full Disclosure recording started 16:11:50 - 16:11:53 H&P Date Dictated: 01/11/2018 Within 30 days and on chart.. 16:11:54 Pre-procedure instructions explained to patient. 16:11:55 Pre-op teaching completed and patient verbalized understanding. 16:11:56 Family in waiting room. 16:11:59 Patient NPO since Midnight. 16:12:48 Is the patient allergic to Iodine/contrast media? No. 16:12:52 Is patient on blood thinner?Yes 16:12:59 ACC The patient was administered the following blood thiners within the last 24 hours: ACCLovenox 16:13:03 Patient diabetic? No. 16:13:24 ----Pre-sedation anethsthesia assessment.---- 16:13:27 Previous problem with sedation/anesthesia? No ? 16:13:28 Snore? Yes 16:13:30 Sleep apnea? No 16:13:31 Deviated septum? No 16:13:32 Opens mouth fully? Yes 16:13:33 Sticks out tongue? Yes 16:13:35 Airway obstruction? No ? 16:13:38 Dentures? No ? 16:13:45 Pre procedure: right dorsailis pedis pulse Doppler 16:13:57 Pre procedure: right posterior tibial pulse Doppler 16:14:31 Use device set IR Diagnostic 16:14:33 Tegaderm 4 x 4 (1626W) opened to sterile field. 16:14:34 Sterile Angiographic Pack opened to sterile field. 16:14:35 Bag Decanter (2002S) opened to sterile field. 16:30:26 ECG and BP/O2 sat monitors applied to patient. 16:30:28 Vital chart was started 16:30:29 Baseline sample Acquired. 16:30:34 - 16:30:43 ----Pre-sedation anethsthesia assessment.---- 16:30:56 IV patent on arrival in left wrist with D5/.45%NaCl at KVO. 16:31:05 Right groin area was prepped with betadine and draped in sterile fashio n 16:33:20 Physician arrived 16:34:50 --------ALL STOP TIME OUT------ 16:34:51 Final Timeout: patient, procedure, and site verified with staff and physician. All members of the team are in agreement. 16:35:03 Procedure started. 16:35:21 GLIDE WIRE ANGLE 180cm (RE2064) opened to sterile field. 16:35:34 TORQUE DEVICE PLASTIC .038 ( TD01) opened to sterile field. 16:37:16 Versed 2 mg I.V. was administered by Jessie Thomas RN; for sedation; 16:43:18 Heparin Flush Bag (1000units/500ml NS) 2 bags added to field was administered by Aniceto Plascencia MD; used for procedure; 16:50:17 GLIDE WIRE Super Stiff Angled 260cm (NV8524) opened to sterile field. 17:03:20 ANGIOSEAL-VIP PLUS 6 FR opened to sterile field. 17:03:30 Procedure ended.(Physican Out) 17:03:43 Contrast amount:Isovue 300 75ml. 17:04:13 Fluoroscopy time 17.20 minutes. 17:05:58 Fluoroscopy dose: 1285 mGy 17:05:58 Flurop Dose total: 1285 17:06:58 Procedure and supply charges have been captured, reviewed, submitted an d are correct. 17:11:24 Report given to ICU. 17:11:49 Vital chart was stopped Device Usage Item Name Manufacture Quantity Catalog Hospital Part Current [facility] l Lot# / Number Charge Number Stock Stock Serial# Code Tegaderm 4 x 3M 1 1626W [id number] 856603 [id number] 5 4 (1626W) Sterile Cardinal 1 [id number] 782462 084058 5 Angiographic Health Pack Bag Decanter Microtek 1 2001S 448910 19684 212889 5 (2001S) Medical Inc. GLIDE WIRE Terumo 1 [id number] 105261 154896 774001 5 ANGLE 180cm (NJ7550) TORQUE DEVICE [place] 1 TD01 995272 739998 897396 5 PLASTIC .038 Scientific ( TD01) GLIDE WIRE Terumo 1 DX7836 943003 590404 603383 5 Super Stiff Angled 260cm (ER1598) ANGIOSEAL-[facility] 1 078536 208430 799537 5 [id number] PLUS 6 FR Signature Audit [place] Stage Time Signature Unsigned Intra-Procedure 01/11/2018 Mercedez Ramirez 5:11:45 PM RT(R) Signatures Monitor : Mercedez Ramirez RT Signature : Date : Time : [place] [id number] [place] [address]
[2018-01-10 18:17] VITALS: BP 151/59
[2018-01-10 18:53] LABS: HEMATOCRIT 41.7 % (42.0-54.0); MCH 31.8 pg (26.0-34.0); MCHC 33.6 g/dL (31.0-37.0); MCV 94.8 fL (80.0-100.0); MEAN PLATELET VOLUME 10.9 fL (7.4-10.4); RBC 4.4 10x6/uL (4.20-6.10); RDW 12.8 % (11.5-14.5); WBC 5.8 10x3/uL (4.8-10.8)
[2018-01-10 19:04] LABS: APTT 26.6 SECONDS (22.8-39.4); INR 0.99 (0.85-1.17); PROTIME 12.7 SECONDS (11.6-15.0)
[2018-01-10 19:15] LABS: ALBUMIN 3.6 g/dL (3.4-5.0); ALKALINE PHOSPHATASE 141 U/L (46-116); ALT (SGPT) 31 U/L (10-68); CALC OSMOLALITY 279 mosm/kg (275-300); CARBON DIOXIDE 30.8 mmol/L (21.0-32.0); CHLORIDE - SERUM 104 mmol/L (98-107); GLUCOSE 106 mg/dL (74-106); POTASSIUM - SERUM 4.2 mmol/L (3.5-5.1); SODIUM 141 mmol/L (136-145); UREA NITROGEN 10 mg/dL (7-18); eGFR NON AFRICAN AMERICAN 78 mL/min (90-120)
[2018-01-10 20:13] VITALS: BP 133/61
[2018-01-11] VITALS (15 sets, daily range): BP systolic 107–149; BP diastolic 58–83; Ht 177.8 cm; Wt 96.5 kg
[2018-01-11 08:02] LABS: PLT FUNCT.(P2Y12) PLAVIX 178 PRU (194-418)
[2018-01-11 13:15] LABS: BASOPHILS 0.4 % (0-2); EOSINOPHILS 6.2 % (0-7); HEMATOCRIT 40.6 % (42.0-54.0); HEMOGLOBIN 13.6 g/dL (13.5-17.5); IMMATURE GRANULOCYTES 0.4 % (0-5); LYMPHOCYTES 32.9 % (15-50); MCH 32.2 pg (26.0-34.0); MCHC 33.5 g/dL (31.0-37.0); MCV 96.2 fL (80.0-100.0); MONOCYTES 7.4 % (2-11); NEUTROPHILS 52.7 % (40-80); PLATELET COUNT 220 10x3/uL (130-400); RBC 4.22 10x6/uL (4.20-6.10); RDW 13.1 % (11.5-14.5)
[2018-01-11 13:29] LABS: INR 1.03 (0.85-1.17); PROTIME 13.1 SECONDS (11.6-15.0)
[2018-01-11 13:39] LABS: APTT 95.1 SECONDS (22.8-39.4)
[2018-01-11 18:00] LABS: BASOPHILS 0.6 % (0-2); EOSINOPHILS 4.9 % (0-7); HEMOGLOBIN 13.3 g/dL (13.5-17.5); IMMATURE GRANULOCYTES 0.2 % (0-5); LYMPHOCYTES 32.4 % (15-50); MCH 31.7 pg (26.0-34.0); MCHC 33.3 g/dL (31.0-37.0); MCV 95.5 fL (80.0-100.0); MEAN PLATELET VOLUME 10.9 fL (7.4-10.4); MONOCYTES 8.2 % (2-11); NEUTROPHILS 53.7 % (40-80); PLATELET COUNT 217 10x3/uL (130-400); RBC 4.19 10x6/uL (4.20-6.10); RDW 12.9 % (11.5-14.5); WBC 5.1 10x3/uL (4.8-10.8)
[2018-01-11 18:16] LABS: INR 0.98 (0.85-1.17); PROTIME 12.6 SECONDS (11.6-15.0)
[2018-01-11 18:35] LABS: APTT 35.7 SECONDS (22.8-39.4)
[2018-01-11 23:33] LABS: BASOPHILS 0.3 % (0-2); EOSINOPHILS 3.7 % (0-7); HEMATOCRIT 41.5 % (42.0-54.0); HEMOGLOBIN 14.1 g/dL (13.5-17.5); IMMATURE GRANULOCYTES 0.2 % (0-5); LYMPHOCYTES 22.3 % (15-50); MCH 32.2 pg (26.0-34.0); MCV 94.7 fL (80.0-100.0); MEAN PLATELET VOLUME 10.8 fL (7.4-10.4); MONOCYTES 8.1 % (2-11); NEUTROPHILS 65.4 % (40-80); PLATELET COUNT 212 10x3/uL (130-400); RBC 4.38 10x6/uL (4.20-6.10); RDW 12.9 % (11.5-14.5)
[2018-01-11 23:37] LABS: WBC 6.6 10x3/uL (4.8-10.8)
[2018-01-11 23:42] LABS: APTT 26.3 SECONDS (22.8-39.4); INR 0.98 (0.85-1.17); PROTIME 12.6 SECONDS (11.6-15.0)
[2018-01-12] VITALS (12 sets, daily range): BP systolic 78–146; BP diastolic 48–72
[2018-01-12 04:09] LABS: BASOPHILS 0.2 % (0-2); EOSINOPHILS 3.3 % (0-7); HEMATOCRIT 39.4 % (42.0-54.0); HEMOGLOBIN 13.3 g/dL (13.5-17.5); IMMATURE GRANULOCYTES 0.3 % (0-5); LYMPHOCYTES 28.2 % (15-50); MCHC 33.8 g/dL (31.0-37.0); MCV 94.9 fL (80.0-100.0); MEAN PLATELET VOLUME 10.8 fL (7.4-10.4); MONOCYTES 7.5 % (2-11); NEUTROPHILS 60.5 % (40-80); PLATELET COUNT 200 10x3/uL (130-400); RBC 4.15 10x6/uL (4.20-6.10); RDW 12.9 % (11.5-14.5); WBC 6.1 10x3/uL (4.8-10.8)
== END 2018-01-12 13:15 | disposition home or self-care (01) | DRG 315 ==
LOC: D.CT 13:43 → D.M2 16:56 → D.ICU 16:56
PROVIDERS: Internal Medicine Cardiovascular Disease; Specialist
PROC: B41GZZZ Fluoroscopy of Left Lower Extremity Arteries (ICD-10-PCS; 2018-01-11)
PROC: 3E03317 Introduction of Other Thrombolytic into Peripheral Vein, Percutaneous Approach (ICD-10-PCS; 2018-01-11)
PROC: 3E05317 Introduction of Other Thrombolytic into Peripheral Artery, Percutaneous Approach (ICD-10-PCS; principal; 2018-01-11 10:24)
DX: T82.868A Thrombosis due to vascular prosthetic devices, implants and grafts, initial encounter (principal); I70.92 Chronic total occlusion of artery of the extremities; I70.213 Atherosclerosis of native arteries of extremities with intermittent claudication, bilateral legs; G62.9 Polyneuropathy, unspecified; E78.5 Hyperlipidemia, unspecified; I65.23 Occlusion and stenosis of bilateral carotid arteries

== ENCOUNTER → 2018-04-02 07:45 | Outpatient (CLI) | payer MEDICARE ==
[2018-01-11 13:42] VITALS: BMI 30.5
== END | disposition home or self-care (01) ==
LOC: D.US 07:45
DX: I73.9 Peripheral vascular disease, unspecified (principal); M79.605 Pain in left leg; M79.604 Pain in right leg

== ENCOUNTER 2018-12-10 08:34 | Emergency (ER) | payer MEDICARE ==
[~2018-12-10] VITALS: Ht 177.8 cm; Wt 93.6 kg
[2018-12-10 08:36] VITALS: Ht 177.8 cm; Wt 93.6 kg
[2018-12-10] MEDS ORDERED: NEURONTIN 300300 MG PO (08:39)
[2018-12-10 09:15] LABS: BASOPHILS 0.1 % (0-2); EOSINOPHILS 1.9 % (0-7); HEMATOCRIT 42.3 % (42.0-54.0); HEMOGLOBIN 14.7 g/dL (13.5-17.5); IMMATURE GRANULOCYTES 0.3 % (0-5); LYMPHOCYTES 26.2 % (15-50); MCH 31.6 pg (26.0-34.0); MCHC 34.8 g/dL (31.0-37.0); MEAN PLATELET VOLUME 9.8 fL (7.4-10.4); MONOCYTES 8.1 % (2-11); NEUTROPHILS 63.4 % (40-80); PLATELET COUNT 300 10x3/uL (130-400); RBC 4.65 10x6/uL (4.20-6.10)
[2018-12-10 09:27] LABS: ALBUMIN 3.6 g/dL (3.4-5.0); ANION GAP 15.7 mmol/L (8-16); BILIRUBIN - TOTAL 0.64 mg/dL (0.2-1.3); CALCIUM 8.8 mg/dL (8.5-10.1); CARBON DIOXIDE 23.5 mmol/L (21.0-32.0); CREATININE - SERUM 1.1 mg/dL (0.6-1.3); POTASSIUM - SERUM 4.2 mmol/L (3.5-5.1); PROTEIN - SERUM 7.3 g/dL (6.4-8.2)
[2018-12-10 14:32] LABS: APPEARANCE CLOUDY (CLEAR); BILIRUBIN NEGATIVE (NEGATIVE); COLOR YELLOW (YELLOW); GLUCOSE NEGATIVE (NEGATIVE); KETONE NEGATIVE (NEGATIVE); NITRITE NEGATIVE (NEGATIVE); PROTEIN NEGATIVE (NEGATIVE); SPECIFIC GRAVITY 1.015 (1.005-1.020); UROBILINOGEN NORMAL (NORMAL)
[2018-12-10 14:34] LABS: BACTERIA FEW /hpf (NONE SEEN); EPITHELIAL CELLS 0-5 /hpf (0-5); YEAST >1+ /hpf (NONE SEEN)
[2018-12-10 14:35] LABS: AMORPHOUS SEDIMENT >1+ /lpf (NONE SEEN)
[2018-12-10 15:00] VITALS: BP 163/70
== END 2018-12-10 15:38 | disposition home or self-care (01) ==
LOC: D.ER 08:34
PROVIDERS: Family Medicine
DX: N20.1 Calculus of ureter (principal); N48.1 Balanitis

== ENCOUNTER → 2020-04-27 08:23 | Outpatient (CLI) | payer MEDICARE ==
[2018-12-10 08:36] VITALS: BMI 29.6
[~2020-04-27 08:23] MED LIST changes: +NEURONTIN 300300 MG PO
== END | disposition home or self-care (01) ==
LOC: D.MRI 08:23
PROVIDERS: ATTEND Psychiatry & Neurology Neurology
DX: F03.90 Unspecified dementia, unspecified severity, without behavioral disturbance, psychotic disturbance, mood disturbance, and anxiety (principal)